=== PATIENT | female | born 1960 | race Caucasian/White ===

== ENCOUNTER 2016-12-10 11:05 | Emergency (ER) | payer OTHER, SELFPAY ==
[2016-12-10] MEDS ORDERED: Hydromorphone 1 mg/ml Ampule IV ONE (11:19)
[2016-12-10] MEDS ORDERED: Hydromorphone 1 mg/ml Ampule ONE (11:22)
--- NOTE | 2016-12-10 11:24 | ERPHSYRPT ---
- History of Present Illness Time Seen by Provider: 12/10/16 11:16 Source: patient Patient Subjective Stated Complaint: patient was vaccuming house at home tripped on cord and fell injured shoulder is concerned she dislocated it. Triage Nursing Assessment: pt gait is stead when ambulating to waiting room, patient alert and orientedx3, pupils perrla2, no cuts or lacerations noted skin clean dry and intact. sensation present pulses equal bialteral radius, cap refil immediate. Physician History: CC: left shoulder pain Hx; 56 y/o smoker with no local doctor and no meds or allergies was vaccuming her home and fell forward tripping. Landed to hurt the left shoulder. Pain is severe with movement, sharp. No neck or back pain. No N/T/W. No head injury. Denies other injuries. Has not eaten today. Occurred: just prior to arrival Extremities Pain Location: shoulder: left Allergies/Adverse Reactions: No Known Drug Allergies Allergy (Unverified 09/22/15 14:56) Home Medications: No Home Meds 1 ea UD 09/22/15 [History] Hx Tetanus, Diphtheria Vaccination/Date Given: No Hx Influenza Vaccination/Date Given: No Hx Pneumococcal Vaccination/Date Given: No - Review of Systems Constitutional: No Symptoms Respiratory: No Dyspnea Cardiac: No Chest Pain Abdominal/Gastrointestinal: No Nausea, No Vomiting Musculoskeletal: Joint Pain (left shoulder), No Back Pain, No Neck Pain Neurological: No Focal Weakness, No Headache, No Parasthesia All Other Systems: Reviewed and Negative - Past Medical History Pertinent Past Medical History: No - Past Surgical History Past Surgical History: Yes Other Surgical History: LUMP REMOVED FROM NECK - Social History Smoking Status: Current every day smoker How long have you smoked: YRS Exposure to second hand smoke: Yes Drug Use: none Patient Lives Alone: No - Nursing Vital Signs Nursing Vital Signs: Initial Vital Signs Temperature 97.5 F Temperature Source Oral Pulse Rate 70 Respiratory Rate 16 Pain Intensity 7 - Physical Exam General Appearance: alert Eyes, Ears, Nose, Throat Exam: normal ENT inspection, moist mucous membranes Neck Exam: normal inspection, non-tender, supple, No tenderness midline Cardiovascular/Respiratory Exam: chest non-tender, normal breath sounds, regular rate/rhythm Abdominal Exam: non-tender, soft Back Exam: normal inspection, No vertebral tenderness Shoulder Exam: normal inspection, bone tenderness, limited ROM (left) Elbow/Forearm Exam: normal inspection, non-tender Wrist Exam: normal inspection, non-tender Hand Exam: normal inspection, non-tender Neuro/Tendon Exam: normal sensation, normal motor functions Mental Status Exam: alert, oriented x 3, cooperative Skin Exam: normal color, warm, dry, No rash SpO2 Interpretation: normal SpO2: 97 Oxygen Delivery: Room Air - Course Nursing assessment & vital signs reviewed: Yes - Radiology Exams left shoulder/humerus X-ray Interpretation: Discussed w/ radiologist (osteopenia, humeral head impacted comminuted fracture) Ordered Tests: Active Orders 24 hr Category Date Time Status Cold Application STAT Care 12/10/16 11:19 Active IV Insertion STAT Care 12/10/16 11:17 Active NPO (ED) STAT Care 12/10/16 11:17 Active Sling Application STAT Care 12/10/16 11:19 Active HUMERUS Stat Exams 12/10/16 11:20 Completed SHOULDER Stat Exams 12/10/16 11:20 Completed Medication Summary Discontinued Medications Generic Name Dose Route Start Last Admin Trade Name Shirazq PRN Reason Stop Dose Admin Hydromorphone HCl 1 mg 12/10/16 11:19 12/10/16 11:25 Hydromorphone 1 Mg/Ml Ampule IV 12/10/16 11:20 1 mg STAT ONE Administration Hydromorphone HCl Confirm 12/10/16 11:22 Hydromorphone 1 Mg/Ml Ampule Administered 12/10/16 11:23 Dose 1 mg .ROUTE .STK-MED ONE - Progress Progress Note: 12/10/16 12:02 Pt has no preference for ortho. No local family doctor. Appt set up for Dr Edna Randall office tomorrow 1PM. Counseled pt/family regarding: diagnosis, need for follow-up, rad results, smoking cessation - Departure Time of Disposition: 12:02 Departure Disposition: Home Clinical Impression: Fracture of humeral head, left, closed Qualifiers: Encounter type: initial encounter Qualified Code(s): S42.292A - Other displaced fracture of upper end of left humerus, initial encounter for closed fracture Condition: Stable Critical Care Time: No Referrals: DOCTOR,NO FAMILY [Primary Care Provider] - PAULINO BISHOP [ACTIVE STAFF] - Instructions: Prevent Falls, Shoulder Fracture, Use a Sling Additional Instructions: See Dr Bishop at [facility] tomorrow at 1PM. Arm sling. Ice packs. Rx norco. No driving today or while taking norco. Prescriptions: Hydrocodone Bit/Acetaminophen [[place] 5-325 Tablet] 1 each PO Q6H PRN PRN #20 tablet PRN Reason: Pain
--- NOTE | 2016-12-10 11:53 | XRAY ---
Indication: Pain following fall. Comparison: None 2 views of the left humerus demonstrates osteopenia and humeral head impacted comminuted fracture. No other bony, articular, or soft tissue abnormalities.
--- NOTE | 2016-12-10 11:58 | XRAY ---
Indication: Pain following fall. Comparison: None 3 views of the left shoulder demonstrates osteopenia and humeral head impacted comminuted fracture. No other bony, articular, or soft tissue abnormalities.
[2016-12-10 12:16] VITALS: BP 125/76; PULSE 82; O2SAT 98
== END 2016-12-10 12:17 | disposition home or self-care (01) ==
LOC: ED 11:05
DX: S42.292A Other displaced fracture of upper end of left humerus, initial encounter for closed fracture (principal); M25.512 Pain in left shoulder; W01.0XXA Fall on same level from slipping, tripping and stumbling without subsequent striking against object, initial encounter; Y93.E3 Activity, vacuuming; Y92.018 Other place in single-family (private) house as the place of occurrence of the external cause
CPT/HCPCS: 36000; 73030; 73060; 96374; 99284; J1170

== ENCOUNTER 2017-07-13 22:02 | Emergency (ER) | payer OTHER ==
[2017-07-13] MEDS ORDERED: TORAdol 30 mg Injection IM ONE (22:12)
--- NOTE | 2017-07-13 22:15 | ERPHSYRPT ---
- History of Present Illness Time Seen by Provider: 07/13/17 22:10 Source: patient Exam Limitations: no limitations Physician History: 57 y/o female comes to the ER with complaints of mid back pain for the past week. Pt describes the pain as sharp, constant, 10/10 and not relieved by OTC pain medication. Pt admits to lifting heavy objects a lot. Timing/Duration: day(s) Method of Injury: bending Quality: sharp Back Pain Location: paraspinous muscles Severity of Pain-Max: severe Severity of Pain-Current: severe Modifying Factors: Improves With: nothing Associated Symptoms: denies symptoms Previous symptoms: no prior history Allergies/Adverse Reactions: No Known Drug Allergies Allergy (Unverified 09/22/15 14:56) Home Medications: No Home Meds [No Home Meds] 1 ea UD 09/22/15 [History] Hx Tetanus, Diphtheria Vaccination/Date Given: No Hx Influenza Vaccination/Date Given: No Hx Pneumococcal Vaccination/Date Given: No - Review of Systems Constitutional: No Fever, No Chills Eyes: No Symptoms Ears, Nose, & Throat: No Symptoms Respiratory: No Cough, No Dyspnea Cardiac: No Chest Pain, No Edema, No Syncope Abdominal/Gastrointestinal: No Abdominal Pain, No Nausea, No Vomiting, No Diarrhea Genitourinary Symptoms: No Dysuria Musculoskeletal: Back Pain, No Neck Pain Skin: No Rash Neurological: No Dizziness, No Focal Weakness, No Sensory Changes Psychological: No Symptoms Endocrine: No Symptoms All Other Systems: Reviewed and Negative - Past Medical History Pertinent Past Medical History: No - Past Surgical History Past Surgical History: Yes Other Surgical History: LUMP REMOVED FROM NECK - Social History Smoking Status: Current every day smoker How long have you smoked: YRS Exposure to second hand smoke: Yes Drug Use: none Patient Lives Alone: No - Nursing Vital Signs Nursing Vital Signs: Initial Vital Signs Temperature 98.9 F 07/13/17 22:09 Pulse Rate 96 H 07/13/17 22:09 Respiratory Rate 20 07/13/17 22:09 Blood Pressure 162/84 07/13/17 22:09 O2 Sat by Pulse Oximetry 99 07/13/17 22:09 Pain Scale Pain Intensity [Posterior Back 6 ] Pain Intensity 6 - Physical Exam General Appearance: no apparent distress, alert Eye Exam: PERRL/EOMI, eyes nml inspection Neck Exam: normal inspection, non-tender, supple, full range of motion, No meningismus, No midline tenderness Respiratory Exam: normal breath sounds, lungs clear, No respiratory distress Cardiovascular Exam: regular rate/rhythm, normal heart sounds Gastrointestinal Exam: soft, No tenderness, No mass Back Exam: normal inspection, normal range of motion, point tenderness, other ( paraspinal tenderness), No CVA tenderness Extremity Exam: normal inspection, normal range of motion, No calf tenderness, No pedal edema Neurologic Exam: alert, oriented x 3, cooperative, chemical operator II-XII nml as tested, normal mood/affect, nml station & gait, sensation nml, No motor deficits Skin Exam: normal color, warm, dry, No rash - Course Nursing assessment & vital signs reviewed: Yes Ordered Tests: Medication Summary Discontinued Medications Generic Name Dose Route Start Last Admin Trade Name Freq PRN Reason Stop Dose Admin Ketorolac Tromethamine 60 mg 07/13/17 22:12 07/13/17 22:19 Toradol 30 Mg Injection IM 07/13/17 22:13 60 mg STAT ONE Administration Ketorolac Tromethamine Confirm 07/13/17 22:18 Toradol 30 Mg Injection Administered 07/13/17 22:19 Dose 60 mg .ROUTE .STK-MED ONE - Progress Progress: improved Progress Note: 07/13/17 23:02 Pt feels better after receiving toradol 60mg IM X 1 dose. Pt will be d/c home with a script for toradol for back strain. - Departure Time of Disposition: 23:03 Departure Disposition: Home Clinical Impression: Back strain Qualifiers: Encounter type: initial encounter Qualified Code(s): S39.012A - Strain of muscle, fascia and tendon of lower back, initial encounter Condition: Stable Critical Care Time: No Referrals: DOCTOR,NO FAMILY [Primary Care Provider] - Instructions: Upper Back Pain Additional Instructions: Follow up with your primary care doctor if you should continue to have pain. Prescriptions: Ketorolac Tromethamine [Toradol] 10 mg PO QID PRN #20 tablet PRN Reason: Pain
[2017-07-13] MEDS ORDERED: TORAdol 30 mg Injection ONE (22:18)
[2017-07-13 23:14] VITALS: BP 138/70; PULSE 88; O2SAT 98
== END 2017-07-13 23:14 | disposition home or self-care (01) ==
LOC: ED 22:02
DX: S39.012A Strain of muscle, fascia and tendon of lower back, initial encounter (principal); X50.0XXA Overexertion from strenuous movement or load, initial encounter
CPT/HCPCS: 99283; 99284; J1885

== ENCOUNTER 2018-01-05 00:26 | Emergency (ER) | payer OTHER ==
[2018-01-05] MEDS ORDERED: TETRACAINE 0.5% STERI-UNIT SOL OP ONE (00:37)
[2018-01-05] MEDS ORDERED: Eye-Stream Solution ONE (00:37)
[2018-01-05] MEDS ORDERED: Fluor-I-Strip/Ful-Flo OP ONE (00:37)
[2018-01-05 00:41] VITALS: O2SAT 96
--- NOTE | 2018-01-05 00:52 | ERPHSYRPT ---
- History of Present Illness Time Seen by Provider: 01/05/18 00:47 Source: patient Exam Limitations: no limitations Patient Subjective Stated Complaint: PT to er co "shampoo in eye" pt states onset approx 2 hour precinct captain. Triage Nursing Assessment: right eye injury states got shampoo in eye approx 2 hour precinct captain. pt arrives with swelling and redness present to eye. pt squinting and gaurding eye. Physician History: pt got shampoo in right eye but still has persisting pain after washing it out a few hours ago; she did not know of any direct blow or hitting eye , but has linear corneal abaision on staining consistent with rubbing on towel or other object; neg seidels, ph 7.5 before and 6.5 after irrigation; globe intact and ant chamber clear - acuity 20/25 bilaterally neg fb with lid eversion; Timing/Duration: today Location: right eye Severity: moderate Apparent Injury: yes Associated Symptoms: pain, sensitivity to light, eyelid swelling Visual Assistive Devices: Glasses Chemical Exposure: Yes (shampoo only ) Trauma: Yes Welding Arc/Tanning Bed Exposure: No Allergies/Adverse Reactions: No Known Drug Allergies Allergy (Unverified 09/22/15 14:56) Home Medications: No Home Meds [No Home Meds] 1 ea UD 09/22/15 [History] Hx Tetanus, Diphtheria Vaccination/Date Given: No Hx Influenza Vaccination/Date Given: No Hx Pneumococcal Vaccination/Date Given: No - Review of Systems Constitutional: No Fever, No Chills Eyes: Eye Pain, Tearing, Other (abrasion) Ears, Nose, & Throat: No Symptoms Respiratory: No Cough, No Dyspnea Cardiac: No Chest Pain, No Edema, No Syncope Abdominal/Gastrointestinal: No Abdominal Pain, No Nausea, No Vomiting, No Diarrhea Genitourinary Symptoms: No Dysuria Musculoskeletal: No Back Pain, No Neck Pain Skin: No Rash Neurological: No Dizziness, No Focal Weakness, No Sensory Changes Psychological: No Symptoms Endocrine: No Symptoms All Other Systems: Reviewed and Negative - Past Medical History Pertinent Past Medical History: No - Past Surgical History Past Surgical History: Yes Other Surgical History: LUMP REMOVED FROM NECK - Social History Smoking Status: Current every day smoker How long have you smoked: YRS Exposure to second hand smoke: Yes Drug Use: none Patient Lives Alone: No - Nursing Vital Signs Nursing Vital Signs: Initial Vital Signs Temperature 98.1 F 01/05/18 00:30 Pulse Rate 95 H 01/05/18 00:30 Respiratory Rate 18 01/05/18 00:30 Blood Pressure 227/112 01/05/18 00:30 O2 Sat by Pulse Oximetry 96 01/05/18 00:30 Pain Scale Pain Intensity 7 - Physical Exam General Appearance: no apparent distress Vision Acuity Right Eye: 20/25 Vision Acuity Left Eye: 20/25 Eye Exam: right eye: corneal abrasion, erythema, eyelid inflammation, left eye: normal inspection, bilateral eye: PERRL, EOMI Ears, Nose, Throat Exam: normal ENT inspection Neck Exam: normal inspection, non-tender, supple, full range of motion Respiratory Exam: normal breath sounds, lungs clear Cardiovascular Exam: regular rate/rhythm, normal heart sounds, normal peripheral pulses Gastrointestinal Exam: soft, No tenderness Extremity Exam: normal inspection, normal range of motion Neurologic: alert, oriented x 3, cooperative, heater helper II-XII nml as tested, normal mood/affect, nml cerebellar function, nml station & gait Skin Exam: normal color, warm, dry SpO2 Interpretation: normal SpO2: 96 Oxygen Delivery: Room Air - Course Nursing assessment & vital signs reviewed: Yes Ordered Tests: Medication Summary Discontinued Medications Generic Name Dose Route Start Last Admin Trade Name Cristiane PRN Reason Stop Dose Admin Hydrocodone Bitart/Acetaminophen 1 tab 01/05/18 00:58 [place] 10/325 Mg Tablet PO 01/05/18 00:59 STAT ONE Diphtheria/Tetanus/Acell Pertussis 0.5 ml 01/05/18 00:58 Adacel Vial IM 01/05/18 00:59 .ONCE ONE Erythromycin 3.5 gm 01/05/18 00:57 Erythromycin 3.5 Gm Ophth. OP 01/05/18 00:58 STAT ONE Eye Irrigation Solution Confirm 01/05/18 00:37 Eye-Stream Solution Administered 01/05/18 00:38 Dose 30 ml .ROUTE .STK-MED ONE Fluorescein Sodium Confirm 01/05/18 00:37 Dqqwh-I-Gmpsr/Ful-Huang Administered 01/05/18 00:38 Dose 1 mg OP .STK-MED ONE Tetracaine HCl Confirm 01/05/18 00:37 Tetracaine 0.5% Steri-Unit Naye Administered 01/05/18 00:38 Dose 4 ml OP .STK-MED ONE - Progress Progress: improved, re-examined Progress Note: 01/05/18 01:01 bp improved to 184/100 after treatment. Counseled pt/family regarding: diagnosis, need for follow-up - Departure Time of Disposition: 00:54 Departure Disposition: Home Clinical Impression: Right corneal abrasion Condition: Good Critical Care Time: No Referrals: DOCTOR,NO FAMILY [Primary Care Provider] - Instructions: Corneal Abrasion (DC) Additional Instructions: followup with eye Dr to recheck healing of abrasion and for any additional eye problems, since scaring can occur with some abrasions. return meantime if not improving or other concerns; use eye ointment 4 times a day for a week; followup with your Dr for better control further evaluation for your blood pressure;
[2018-01-05] MEDS ORDERED: Erythromycin 1 GM ONE (01:02)
[2018-01-05] MEDS ORDERED: Adacel Vial IM ONE (01:03)
[2018-01-05] MEDS ORDERED: Norco 10/325 MG Tablet ONE (01:03)
[2018-01-05] MEDS: Adacel Vial IM ONE (01:08)
[2018-01-05] MEDS: Erythromycin 3.5 GM OPHTH. OP ONE (01:09)
[2018-01-05] MEDS: Norco 10/325 MG Tablet PO ONE (01:09)
[2018-01-05 01:42] VITALS: BP 184/99; PULSE 78
== END 2018-01-05 01:38 | disposition home or self-care (01) ==
LOC: ED 00:26
DX: S05.01XA Injury of conjunctiva and corneal abrasion without foreign body, right eye, initial encounter (principal); W45.8XXA Other foreign body or object entering through skin, initial encounter
CPT/HCPCS: 90471; 90715; 99283; A9270-GY

== ENCOUNTER 2018-06-06 21:30 | Emergency (ER) | payer OTHER ==
[2018-06-06] MEDS ORDERED: Rocephin 1000 MG INJ IM STA (22:42)
--- NOTE | 2018-06-06 22:50 | ERPHSYRPT ---
- History of Present Illness Time Seen by Provider: 06/06/18 22:30 Source: patient Exam Limitations: clinical condition Patient Subjective Stated Complaint: pt states she has a scabbed area on her lt lower leg from 2-3 weeks ago and is concerned about the swelling and redness Triage Nursing Assessment: pt alert and oriented, asnwers questions approp. pt ambulatory with steady gait noted. respirations nonlabored with lungs cta. scabbing noted to lt lower leg with mild redness and warmth surrounding. pt denies pain to her leg Physician History: PATIENT SUSTAINED ABRASIONS TO HER LEFT MID WEATHERS 3 WEEKS AGO, NOW ABRASIONS ARE SCABED OVER WITH SURROUNDING REDNESS. DENIES FEVER OR CHILLS, OR PAIN UPON WEIGHT BEARING. Method of Injury: incised Occurred: other (WEEKS AGO) Quality: other (DENIES PAIN) Severity of Pain-Max: none Severity of Pain-Current: none Modifying Factors: Improves With: nothing Associated Symptoms: other (ABRASIONS WITH REDNESS) Allergies/Adverse Reactions: No Known Drug Allergies Allergy (Verified 06/06/18 22:35) Home Medications: No Home Meds [No Home Meds] 1 [facility] 09/22/15 [History] Hx Tetanus, Diphtheria Vaccination/Date Given: No (unknown) Hx Influenza Vaccination/Date Given: No Hx Pneumococcal Vaccination/Date Given: No Immunizations Up to Date: No - Review of Systems Constitutional: No Fever, No Chills Eyes: No Symptoms Ears, Nose, & Throat: No Symptoms Respiratory: No Symptoms, No Cough, No Dyspnea Cardiac: Orthopnea, No Chest Pain, No Edema, No Syncope Abdominal/Gastrointestinal: No Abdominal Pain, No Nausea, No Vomiting, No Diarrhea Genitourinary Symptoms: No Dysuria Musculoskeletal: Injury, No Back Pain, No Neck Pain Skin: No Rash Neurological: No Dizziness, No Focal Weakness, No Sensory Changes Psychological: No Symptoms Endocrine: No Symptoms All Other Systems: Reviewed and Negative - Past Medical History Pertinent Past Medical History: No - Past Surgical History Past Surgical History: Yes Musculoskeletal: Orthopedic Surgery Other Surgical History: LUMP REMOVED FROM NECK, lt shoulder repair - Social History Smoking Status: Current every day smoker How long have you smoked: YRS Exposure to second hand smoke: Yes Drug Use: none Patient Lives Alone: No - Nursing Vital Signs Nursing Vital Signs: Initial Vital Signs Temperature 97.9 F 06/06/18 22:26 Pulse Rate 79 06/06/18 22:26 Respiratory Rate 18 06/06/18 22:26 Blood Pressure 184/109 06/06/18 22:26 O2 Sat by Pulse Oximetry 98 06/06/18 22:26 Pain Scale Pain Intensity 0 - Physical Exam General Appearance: no apparent distress Eyes, Ears, Nose, Throat Exam: normal ENT inspection Neck Exam: normal inspection Cardiovascular/Respiratory Exam: chest non-tender Gastrointestinal/Abdominal Exam: non-tender Legs Exam: right leg: swelling (HEALING ABRASIONS 1.5CM X 1CM X 2 LESIONS WITH SURROUNDING ERYTHRMA, WARMTN, MID LEFT WEATHERS, PEDIS PULSE 2+) Neuro/Tendon Exam: normal sensation Mental Status Exam: alert, oriented x 3 Skin Exam: normal color SpO2 Interpretation: normal SpO2: 98 Oxygen Delivery: Room Air Ordered Tests: Active Orders 24 hr Category Date Time Status IV Insertion STAT Care 06/06/18 22:42 Active Medication Summary Generic Name Dose Route Start Last Admin Trade Name Freq PRN Reason Stop Dose Admin Ceftriaxone Sodium mg 06/06/18 22:42 Rocephin 1000 Mg Inj IM 06/06/18 22:43 STAT STA Discontinued Medications Generic Name Dose Route Start Last Admin Trade Name Freq PRN Reason Stop Dose Admin Ceftriaxone Sodium/Dextrose 1 g in 50 mls @ 100 mls/hr 06/06/18 23:22 23:33 Rocephin 1 Gm-D5w 50 Ml Bag IV 06/06/18 23:51 100 ml/hr STAT STA 100 mls/hr Administration Ceftriaxone Sodium/Dextrose Confirm 06/06/18 23:23 Rocephin 1 Gm-D5w 50 Ml Bag Administered 06/06/18 23:24 Dose 1 g in 50 mls @ ud IV .STK-MED ONE - Progress Progress Note: 06/06/18 22:52 SALINE LOCK, ROCEPHIN 1GM IVPB Counseled pt/family regarding: diagnosis, need for follow-up - Departure Time of Disposition: 23:56 Departure Disposition: Home Clinical Impression: ABRASIONS/CELLULITIS LEFT WEATHERS Condition: Stable Critical Care Time: No Referrals: DOCTOR,NO FAMILY [Primary Care Provider] - Additional Instructions: BEGIN ANTIBIOTIC AUGMENTIN 875MG TWICE DAILY FOR 10 DAYS. WATCH FOR INCREASING SIGNS OF INFECTION, REDNESS, SWELLING OR DRAINAGE. TYLENOL OR MOTRIN NEEDED FOR PAIN OR FEVER. Prescriptions: Amox Tr/Potass Clav. 875 mg [Augmentin 875-125 Tablet] 1 tab PO BID #20 tablet
[2018-06-06] MEDS ORDERED: ROCEPHIN 1 Gm-D5w 50 ml Bag** 1 G/50 ML IVPB IV STA (23:22)
[2018-06-06] MEDS ORDERED: ROCEPHIN 1 Gm-D5w 50 ml Bag** 1 G/50 ML IVPB IV ONE (23:23)
[2018-06-07 00:04] VITALS: BP 165/97; PULSE 81; O2SAT 97
== END 2018-06-07 00:05 | disposition home or self-care (01) ==
LOC: ED 21:30
DX: L03.116 Cellulitis of left lower limb (principal)
CPT/HCPCS: 36000; 96365; 99284; J0696

== ENCOUNTER 2019-12-30 08:58 | Emergency (ER) | payer OTHER ==
[2019-12-30] MEDS ORDERED: Sodium Chloride 0.9% 1000 ML 1,000 ML ONE (09:22)
[2019-12-30] MEDS ORDERED: MORPHINE SULFATE 2 MG INJ IV ONE (09:25)
[2019-12-30] MEDS ORDERED: MORPHINE SULFATE 2 MG INJ ONE (09:27)
[2019-12-30 09:28] LABS: Absolute Neutrophil Ct (ANC) 3.94 (1.4-6.9); BASOPHIL % 0.6 % (0.0-0.4); Basophil (Absolute #) 0.04 (0-0.4); Eosinophil % 3.3 % (0.00-5.0); Eosinophil (Absolute #) 0.21 (0-0.5); Hematocrit 40.6 % (35-47); Lymphocyte (Absolute #) 1.81 (1.0-4.6); Lymphocytes % 28.4 % (24.0-44.0); Mean Cell Volume 89.6 fl (78-100); Mean Corpuscular Hemoglobin 28.7 pg (26-32); Monocyte (Absolute #) 0.38 (0.0-1.3); Neutrophil % 61.7 % (36.0-66.0); Platelet Count 270 K/mm3 (150-450); Red Blood Count 4.53 M/mm3 (4.1-5.4); White Blood Count 6.4 K/mm3 (4.0-10.5)
[2019-12-30] MEDS ORDERED: Sodium Chloride 0.9% 1000 ML 1,000 ML IV SCH (09:30)
--- NOTE | 2019-12-30 09:30 | ERPHSYRPT ---
- History of Present Illness Time Seen by Provider: 12/30/19 09:15 Historian: patient Exam Limitations: no limitations Patient Subjective Stated Complaint: pt here for left sided abd pain that radiates to flank area with nausea and vomting this am. Triage Nursing Assessment: pt alert, walked in with face mask on, resp easy, skin w/d/p. abd soft, moves all ext well Physician History: Patient is a 59-year-old female presents to our ED with complaints of left lower quadrant pain. Patient states the pain started last night but was very mild. Patient worsened this morning. Pain described as an ache that is well loca lized. Pain occasionally shoots into her left flank. No associated diarrhea. Patient admits to 1 episode of nausea and vomiting this morning just prior to arrival. No associated trauma. No fever. No change in appetite or urine output. Patient does not receive routine care and states she has no other medical problems. Patient voices no other complaints at this time. Timing/Duration: yesterday Activities at Onset: none Quality: aching Abdominal Pain Onset Location: LLQ Pain Radiation: flank Severity of Pain-Max: moderate Severity of Pain-Current: mild Modifying Factors: Improves With: nothing Associated Symptoms: nausea, vomiting, No diarrhea, No weakness Previous symptoms: no prior history Allergies/Adverse Reactions: No Known Drug Allergies Allergy (Verified 12/30/19 09:15) Home Medications: No Home Meds [No Home Meds] 1 [facility] UD 09/22/15 [History] Hx Tetanus, Diphtheria Vaccination/Date Given: No (unknown) Hx Influenza Vaccination/Date Given: No Hx Pneumococcal Vaccination/Date Given: No Immunizations Up to Date: Yes Travel Risk - International Travel Have you traveled outside of the country in past 3 weeks: No - Coronavirus Screening Are you exhibiting any of the following symptoms?: Yes Symptoms: Vomiting/Diarrhea Close contact with a COVID-19 positive Pt in past 14-21 Days: No - Review of Systems Constitutional: No Symptoms, No Fever, No Chills Eyes: No Symptoms Ears, Nose, & Throat: No Symptoms Respiratory: No Symptoms, No Cough, No Dyspnea Cardiac: No Symptoms, No Chest Pain, No Edema, No Syncope Abdominal/Gastrointestinal: No Symptoms, No Abdominal Pain, No Nausea, No Vomiting, No Diarrhea Genitourinary Symptoms: No Symptoms, No Dysuria Musculoskeletal: No Symptoms, No Back Pain, No Neck Pain Skin: No Symptoms, No Rash Neurological: No Symptoms, No Dizziness, No Focal Weakness, No Sensory Changes Psychological: No Symptoms Endocrine: No Symptoms Hematologic/Lymphatic: No Symptoms Immunological/Allergic: No Symptoms All Other Systems: Reviewed and Negative - Past Medical History Pertinent Past Medical History: No - Past Surgical History Past Surgical History: Yes Musculoskeletal: Orthopedic Surgery Other Surgical History: LUMP REMOVED FROM NECK, lt shoulder repair - Social History Smoking Status: Current every day smoker How long have you smoked: YRS Exposure to second hand smoke: Yes Drug Use: none Patient Lives Alone: Yes - Female History Hx Last Menstrual Period: post Hx Now: No - Nursing Vital Signs Nursing Vital Signs: Initial Vital Signs Temperature 97.5 F 12/30/19 09:09 Pulse Rate 80 12/30/19 09:09 Respiratory Rate 16 12/30/19 09:09 Blood Pressure 164/103 12/30/19 09:09 O2 Sat by Pulse Oximetry 96 12/30/19 09:09 Pain Scale Pain Intensity 3 - Physical Exam General Appearance: no apparent distress, alert Eye Exam: PERRL/EOMI, eyes nml inspection Ears, Nose, Throat Exam: normal ENT inspection, pharynx normal, moist mucous membranes Neck Exam: normal inspection, non-tender, supple, full range of motion Respiratory Exam: normal breath sounds, lungs clear, No respiratory distress Cardiovascular Exam: regular rate/rhythm, normal heart sounds Gastrointestinal/Abdomen Exam: soft, No tenderness, No mass Pelvic Exam: not done Back Exam: normal inspection, normal range of motion, No CVA tenderness, No vertebral tenderness Extremity Exam: normal inspection, normal range of motion, pelvis stable Neurologic Exam: alert, oriented x 3, cooperative, normal mood/affect, nml cerebellar function, sensation nml, No motor deficits Skin Exam: normal color, warm, dry Lymphatic Exam: No adenopathy SpO2 Interpretation: normal SpO2: 96 O2 Delivery: Room Air - Course Nursing assessment & vital signs reviewed: Yes EKG Interpreted by Me: RATE (63), Sinus Rhythm, NORMAL AXIS, NORMAL INTERVALS - CT Exams Abdomen/Pelvis CT Interpretation: Tele-radiologist Report (9 x 10 x 8 cm midline cystic mass probably ovarian in etiology. Degenerative changes of thoracolumbar spine. Remote appearing T8 T11 compression deformities with 25 to 50% height loss. ) Ordered Tests: Active Orders 24 hr Category Date Time Status EKG-ER Only STAT Care 12/30/19 09:16 Active IV Insertion STAT Care 12/30/19 09:16 Active ABDOMEN AND PELVIS W CONTRAST [CT] Stat Exams 12/30/19 09:24 Completed CBC W DIFF Stat Lab 12/30/19 09:15 Completed CMP Stat Lab 12/30/19 09:15 Completed LIPASE Stat Lab 12/30/19 09:15 Completed TROPONIN Q3H Lab 12/30/19 09:15 Completed TROPONIN Q3H Lab 12/30/19 12:30 Ordered TROPONIN Q3H Lab 12/30/19 15:30 Ordered TROPONIN Q3H Lab 12/30/19 18:30 Ordered TROPONIN Q3H Lab 12/30/19 21:30 Ordered UA W/RFX UR CULTURE Stat Lab 12/30/19 10:15 Completed Medication Summary Generic Name Dose Route Start Last Admin Trade Name Freq PRN Reason Stop Dose Admin Sodium Chloride 1,000 mls @ 100 mls/hr 12/30/19 09:30 12/30/19 09:26 Sodium Chloride 0.9% 1000 Ml IV 01/29/20 09:29 100 mls/hr .Q10H SAMANTHA Administration Discontinued Medications Generic Name Dose Route Start Last Admin Trade Name Freq PRN Reason Stop Dose Admin Morphine Sulfate 2 mg 12/30/19 09:25 12/30/19 09:29 Morphine Sulfate 2 Mg Inj IV 12/30/19 09:26 2 mg STAT ONE Administration Morphine Sulfate Confirm 12/30/19 09:27 Morphine Sulfate 2 Mg Inj Administered 12/30/19 09:28 Dose 2 mg .ROUTE .[facility] ONE Lab/Rad Data: Laboratory Result Diagrams 12/30/19 09:15 12/30/19 09:15 Laboratory Results 12/30/19 12/30/19 12/30/19 Range/Units 10:15 09:15 09:15 WBC (4.0-10.5) K/mm3 RBC (4.1-5.4) M/mm3 Hgb (12.0-16.0) gm/dl Hct (35-47) % MCV (78-100) fl MCH (26-32) pg MCHC (32-36) g/dl RDW (11.5-14.0) % Plt Count (150-450) K/mm3 MPV (7.5-11.0) fl Gran % (36.0-66.0) % Eos # (Auto) (0-0.5) Absolute Lymphs (auto) (1.0-4.6) Absolute Monos (auto) (0.0-1.3) Lymphocytes % (24.0-44.0) % Monocytes % (0.0-12.0) % Eosinophils % (0.00-5.0) % Basophils % (0.0-0.4) % Absolute Granulocytes (1.4-6.9) Basophils # (0-0.4) Sodium 139 (137-145) mmol/L Potassium 3.7 (3.5-5.1) mmol/L Chloride 106 (98-107) mmol/L Carbon Dioxide 26 (22-30) mmol/L Anion Gap 10.5 (5-15) MEQ/L BUN 7 (7-17) mg/dL Creatinine 0.51 L (0.52-1.04) mg/dL Estimated GFR > 60.0 ML/MIN Glucose 147 H (74-106) mg/dL Calcium 9.0 (8.4-10.2) mg/dL Total Bilirubin 0.50 (0.2-1.3) mg/dL AST 34 (14-36) U/L ALT 26 (0-35) U/L Alkaline Phosphatase 282 H (38-126) U/L Troponin I < 0.012 (0.000-0.034) ng/mL Serum Total Protein 7.6 (6.3-8.2) g/dL Albumin 4.1 (3.5-5.0) g/dL Lipase 68 (23-300) U/L Urine Color STRAW (YELLOW) Urine Appearance CLEAR (CLEAR) Urine pH 7.0 (5-6) Ur Specific [place] 1.005 (1.005-1.025) Urine Protein NEGATIVE (Negative) Urine Ketones NEGATIVE (NEGATIVE) Urine Blood SMALL (0-5) Ovidio/ul Urine Nitrite NEGATIVE (NEGATIVE) Urine Bilirubin NEGATIVE (NEGATIVE) Urine Urobilinogen NEGATIVE (0-1) mg/dL Ur Leukocyte Esterase NEGATIVE (NEGATIVE) Urine WBC (Auto) NONE (0-5) /HPF Urine RBC (Auto) NONE SEEN (0-2) /HPF U Epithel Cells (Auto) NONE (FEW) /HPF Urine Bacteria (Auto) NONE SEEN (NEGATIVE) /HPF Urine Mucus (Auto) SLIGHT (NEGATIVE) /HPF Urine Culture Reflexed NO (NO) Urine Glucose NEGATIVE (NEGATIVE) mg/dL 12/30/19 Range/Units 09:15 WBC 6.4 (4.0-10.5) K/mm3 RBC 4.53 (4.1-5.4) M/mm3 Hgb 13.0 (12.0-16.0) gm/dl Hct 40.6 (35-47) % MCV 89.6 (78-100) fl MCH 28.7 (26-32) pg MCHC 32.0 (32-36) g/dl RDW 15.0 H (11.5-14.0) % Plt Count 270 (150-450) K/mm3 MPV 11.0 (7.5-11.0) fl Gran % 61.7 (36.0-66.0) % Eos # (Auto) 0.21 (0-0.5) Absolute Lymphs (auto) 1.81 (1.0-4.6) Absolute Monos (auto) 0.38 (0.0-1.3) Lymphocytes % 28.4 (24.0-44.0) % Monocytes % 6.0 (0.0-12.0) % Eosinophils % 3.3 (0.00-5.0) % Basophils % 0.6 (0.0-0.4) % Absolute Granulocytes 3.94 (1.4-6.9) Basophils # 0.04 (0-0.4) Sodium (137-145) mmol/L Potassium (3.5-5.1) mmol/L Chloride (98-107) mmol/L Carbon Dioxide (22-30) mmol/L Anion Gap (5-15) MEQ/L BUN (7-17) mg/dL Creatinine (0.52-1.04) mg/dL Estimated GFR ML/MIN Glucose (74-106) mg/dL Calcium (8.4-10.2) mg/dL Total Bilirubin (0.2-1.3) mg/dL AST (14-36) U/L ALT (0-35) U/L Alkaline Phosphatase (38-126) U/L Troponin I (0.000-0.034) ng/mL Serum Total Protein (6.3-8.2) g/dL Albumin (3.5-5.0) g/dL Lipase (23-300) U/L Urine Color (YELLOW) Urine Appearance (CLEAR) Urine pH (5-6) Ur Specific [place] (1.005-1.025) Urine Protein (Negative) Urine Ketones (NEGATIVE) Urine Blood (0-5) Ovidio/ul Urine Nitrite (NEGATIVE) Urine Bilirubin (NEGATIVE) Urine Urobilinogen (0-1) mg/dL Ur Leukocyte Esterase (NEGATIVE) Urine WBC (Auto) (0-5) /HPF Urine RBC (Auto) (0-2) /HPF U Epithel Cells (Auto) (FEW) /HPF Urine Bacteria (Auto) (NEGATIVE) /HPF Urine Mucus (Auto) (NEGATIVE) /HPF Urine Culture Reflexed (NO) Urine Glucose (NEGATIVE) mg/dL - Progress Progress: improved Progress Note: 12/30/19 11:17 Patient reassessed. Pain improved. CT abdomen pelvis shows large pelvic cystic mass measuring 9.6 x 10.1 x 8.5 cm. Malignancy such as cyst adenocarcinoma must be ruled out. Borderline cardiomegaly with scattered arterial sclerotic disease and chronic bony findings. Case discussed with of CASTING DIRECTOR. Ca1 25 and CEA were both ordered. These are send outs. Patient will be discharged home and she will follow-up with our CASTING DIRECTOR physician on Saturday. He presented to our ED and evaluated patient at bedside. Pain well controlled at this time. Patient had not taken any oral pain medications/analgesics at home. Patient will try Tylenol Motrin for pain control. Plan of care discussed with patient. She agrees to follow-up with Dr. Llamas on Saturday as planned. All questions were answered. Patient voices no other complaints or concerns at this time. 12/30/19 11:47 Discussed with : Kang Will see patient in: office Counseled pt/family regarding: lab results, diagnosis, need for follow-up, rad results - Departure Departure Disposition: Home Clinical Impression: Abdominal pain, Hyperglycemia Condition: Stable Critical Care Time: No Referrals: DOCTOR,NO FAMILY [Primary Care Provider] - KAHLIL CAMPOS DO [ACTIVE STAFF] - Additional Instructions: Discharge/Care Plan RUTHYANILA PONCE was seen on 12/30/19 in the Emergency Room. The patient was counseled regarding Diagnosis,Lab results, Imaging studies, need for follow up and when to return to the Emergency Room. Prescriptions given: Discharge Note I have spoken with the patient and/or caregivers. I have explained the patient's condition, diagnosis and treatment plan based on the information available to me at this time. I have answered the patient's and/or caregiver's questions and addressed any concerns. The patient and/or caregivers have as good understanding of the patient's diagnosis, condition and treatment plan as can be expected at this point. The vital signs have been stable. The patient's condition is stable and appropriate for discharge from the emergency department. The patient will pursue further outpatient evaluation with the primary care physician or other designated or consulting physician as outlined in the discharge instructions. The patient and/or caregivers are agreeable to this plan of care and follow-up instructions have been explained in detail. The patient and/or caregivers have received these instruction. The patient/and or caregivers are aware that any significant change in condition or worsening of symptoms should prompt an immediate return to this or the closest emergency department or call 911.
[2019-12-30 09:46] LABS: ALBUMIN 4.1 g/dL (3.5-5.0); ALKALINE PHOSPHATASE 282 U/L (38-126); ANION GAP 10.5 MEQ/L (5-15); BLOOD UREA NITROGEN 7 mg/dL (7-17); CHLORIDE 106 mmol/L (98-107); Carbon Dioxide 26 mmol/L (22-30); Creatinine 1 0.51 mg/dL (0.52-1.04); Glucose 147 mg/dL (74-106); LIPASE 68 U/L (23-300); Potassium 3.7 mmol/L (3.5-5.1); SGOT/AST 34 U/L (14-36); SGPT/ALT 26 U/L (0-35); SODIUM 139 mmol/L (137-145); Total Protein 7.6 g/dL (6.3-8.2)
--- NOTE | 2019-12-30 11:02 | XRAY ---
Indication: Left lower quadrant pain. Multiple contiguous axial images obtained through the abdomen and pelvis using 80 cc Isovue 370 contrast only. Comparison: None Lung bases demonstrates scattered fibrosis/scarring. No focal infiltrate or effusion. Heart is borderline enlarged. Noncontrasted stomach and bowel loops appear nonobstructed. Appendix not seen. Pelvis demonstrates a 9.6 x 10.1 x 8.5 cm midline cystic mass, probably ovary in etiology. No free fluid/air. Remaining liver, gallbladder, pancreas, spleen, adrenal glands, kidneys, ureters, bladder, and uterus unremarkable. Mild scattered aortoiliac calcifications. No AAA or pathologic retroperitoneal lymphadenopathy. Osseous structures intact with minimal degenerative changes throughout the thoracolumbar spine. Remote appearing T8/T11 compression deformities with 25-50% height loss. Impression: 1. Large pelvic cystic mass with measurements above possibly ovary etiology. Rule out malignancy such as cystadenocarcinoma. 2. Borderline cardiomegaly, scattered arteriosclerotic disease, and chronic bony findings. 3. Remaining CT abdomen/pelvis with contrast exam is negative.
[2019-12-30 11:17] VITALS: BP 174/94; PULSE 66
[2019-12-30 11:19] VITALS: O2SAT 96
[2019-12-30 11:27] LABS: Appearance CLEAR (CLEAR); Bilirubin NEGATIVE (NEGATIVE); Blood SMALL Ery/ul (0-5); Glucose NEGATIVE (NEGATIVE); Ketones NEGATIVE (NEGATIVE); Leukocyte Esterase NEGATIVE (NEGATIVE); Mucus SLIGHT /HPF (NEGATIVE); Nitrite NEGATIVE (NEGATIVE); Protein,Urine Dip NEGATIVE (Negative); Specific Gravity 1.005 (1.005-1.025); Urobilinogen NEGATIVE mg/dL (0-1)
[2019-12-30 11:36] LABS: RBC NONE SEEN /HPF (0-2)
[2019-12-30 11:37] LABS: Bacteria NONE SEEN /HPF (NEGATIVE)
== END 2019-12-30 11:49 | disposition home or self-care (01) ==
LOC: ED 08:58
DX: R10.9 Unspecified abdominal pain (principal); R73.9 Hyperglycemia, unspecified; Z72.0 Tobacco use
CPT/HCPCS: 36000; 36415; 74177; 80053; 81001; 82378; 83690; 84484; 85025; 86304; 93005; 96374; 99284; J2270

== ENCOUNTER 2020-03-09 20:20 | Emergency (ER) | payer OTHER ==
--- NOTE | 2020-03-09 20:30 | ERPHSYRPT ---
- History of Present Illness Time Seen by Provider: 03/09/20 20:30 Source: patient Exam Limitations: no limitations Physician History: This is a right-handed 59-year-old female who was walking on an uneven road and fell on outstretched hands. She complains of left wrist pain and left knee pain. There is an abrasion and laceration on her left anterior knee. Patient's last tetanus injection was in 2018 patient has no known drug allergies. Patient did not hit her neck or head during the fall. Occurred: just prior to arrival Method of Injury: fell Quality: aching, throbbing Severity of Pain-Max: moderate Severity of Pain-Current: moderate Extremities Pain Location: wrist: left, other: left (Left anterior knee) Modifying Factors: Improves With: movement Associated Symptoms: none Allergies/Adverse Reactions: No Known Drug Allergies Allergy (Verified 03/09/20 20:42) Home Medications: Lisinopril 5 mg [Zestril 5 MG] 5 mg PO DAILY 03/09/20 [History] Hx Tetanus, Diphtheria Vaccination/Date Given: No (unknown) Hx Influenza Vaccination/Date Given: No Hx Pneumococcal Vaccination/Date Given: No Travel Risk - International Travel Have you traveled outside of the country in past 3 weeks: No - Coronavirus Screening Are you exhibiting any of the following symptoms?: No Close contact with a COVID-19 positive Pt in past 14-21 Days: No - Review of Systems Constitutional: No Symptoms Eyes: No Symptoms Ears, Nose, & Throat: No Symptoms Respiratory: No Symptoms Cardiac: No Symptoms Abdominal/Gastrointestinal: No Symptoms Genitourinary Symptoms: No Symptoms Musculoskeletal: Deformity (Left wrist), Fall, Injury (Wrist and left anterior knee) Skin: No Symptoms Neurological: No Symptoms Psychological: No Symptoms Endocrine: No Symptoms Hematologic/Lymphatic: No Symptoms Immunological/Allergic: No Symptoms All Other Systems: Reviewed and Negative - Past Medical History Pertinent Past Medical History: Yes Neurological History: No Pertinent History ENT History: No Pertinent History Cardiac History: No Pertinent History Respiratory History: No Pertinent History Endocrine Medical History: No Pertinent History Musculoskeletal History: No Pertinent History GI Medical History: No Pertinent History History: No Pertinent History Psycho-Social History: No Pertinent History Female Reproductive Disorders: No Pertinent History - Past Surgical History Past Surgical History: Yes Neuro Surgical History: No Pertinent History Cardiac: No Pertinent History Respiratory: No Pertinent History Gastrointestinal: No Pertinent History Genitourinary: No Pertinent History Musculoskeletal: Orthopedic Surgery Female Surgical History: Tubal Ligation Other Surgical History: LUMP REMOVED FROM NECK, lt shoulder repair - Social History Smoking Status: Current every day smoker How long have you smoked: YRS Exposure to second hand smoke: Yes Drug Use: none Patient Lives Alone: Yes - Nursing Vital Signs Nursing Vital Signs: Initial Vital Signs Temperature 97.6 F 03/09/20 20:30 Pulse Rate 87 03/09/20 20:30 Respiratory Rate 18 03/09/20 20:30 Blood Pressure 168/86 03/09/20 20:30 O2 Sat by Pulse Oximetry 98 03/09/20 20:30 Pain Scale Pain Intensity 10 - Physical Exam General Appearance: no apparent distress, alert, anxiety Eyes, Ears, Nose, Throat Exam: normal ENT inspection, moist mucous membranes Neck Exam: normal inspection, non-tender, supple, full range of motion Cardiovascular/Respiratory Exam: chest non-tender, no respiratory distress, rhonchi Abdominal Exam: non-tender Back Exam: normal inspection, normal range of motion, No CVA tenderness, No vertebral tenderness Shoulder Exam: normal inspection, non-tender, no evidence of injury, normal ROM Elbow/Forearm Exam: normal inspection, non-tender, no evidence of injury, normal ROM Wrist Exam: bone tenderness, deformity, limited ROM, soft tissue tenderness, swelling Hand Exam: normal inspection, non-tender, no evidence of injury, normal ROM Neuro/Tendon Exam: normal sensation, normal motor functions, normal tendon functions, responds to pain, no evidence tendon injury Skin Exam: normal color, warm, dry Comments: Examination of the patient's left anterior knee shows abrasion as well up as approximately 4 cm diagonal laceration of the skin on the anterior knee. There is no foreign body and there is no active bleeding present. Procedures - Laceration/Wound Repair Left Anterior Knee Wound Location: Left, lower leg (Anterior knee) Wound Length (cm): 4 Wound's Depth, Shape: superficial, linear Wound Explored: clean (Foreign body noted. Evaluation was performed in bloodless field to the base.) Irrigated: Yes Hibiclens Prep: Yes Anesthesia: topical Wound Repaired With: Ophir (6 fariba placed to approximate the laceration site.) - Course Nursing assessment & vital signs reviewed: Yes Ordered Tests: Active Orders 24 hr Category Date Time Status KNEE (3 VIEWS) Stat Exams 03/09/20 21:12 Taken WRIST (MIN 3 VIEWS) Stat Exams 03/09/20 20:31 Taken Medication Summary Discontinued Medications Generic Name Dose Route Start Last Admin Trade Name Cristiane PRN Reason Stop Dose Admin Lidocaine/Prilocaine Confirm 03/09/20 20:35 Emla Cream 5 Gm Administered 03/09/20 20:36 Dose 5 gm TP .STK-MED ONE - Progress Progress: improved, pain not gone completely, re-examined Progress Note: 03/09/20 21:35 X-ray of the left wrist reveals a fracture of the distal radius. There does not appear to be a fracture of the distal ulna. X-ray of the left knee shows no acute fracture or dislocation. Neurovascular examination of the patient's left hand after placement of short arm Ortho-Glass on the left wrist reveals patient to be neurovascularly intact with brisk capillary refill return. Patient is able to wiggle her fingers and thumb. Counseled pt/family regarding: diagnosis, need for follow-up, rad results - Departure Departure Disposition: Home Clinical Impression: Distal radius fracture, left, Laceration of left knee, Abrasion, left knee, initial encounter Condition: Stable Critical Care Time: No Referrals: YAMILE RODRIGUEZ DO [Primary Care Provider] - Additional Instructions: Keep left knee laceration and abrasion site dry for 24 hours. After 24 hours may wash the site with soap and water and blot dry. After washing, may apply antibiotic ointment once a day and then cover the area with a nonstick gauze. Staple removal in 8 to 10 days. Take medication as prescribed. Follow-up with the [facility] orthopedic clinic tomorrow morning at 8:00. Prescriptions: Oxycodone HCl/Acetaminophen [Percocet 5-325 mg Tablet] 1 each PO Q8H PRN PRN #12 tablet MDD 3 PRN Reason: Pain Cephalexin Mh 500 mg [Keflex 500 mg] 500 mg PO TID #21 capsule
[2020-03-09] MEDS ORDERED: EMLA Cream 5 GM TP ONE ×2 (20:35→21:44)
[2020-03-09] MEDS ORDERED: OXYCODONE-ACETAMINOPHEN 10-325 PO STA (21:42)
[2020-03-09] MEDS ORDERED: PERCOCET TABLET 5/325MG PO STA (21:43)
[2020-03-09] MEDS ORDERED: KEFLEX 500 MG PO ONE (21:43)
[2020-03-09] MEDS ORDERED: BACIGUENT PACKET TP ONE (21:44)
[2020-03-09] MEDS ORDERED: BACIGUENT PACKET ONE (21:46)
[2020-03-09] MEDS ORDERED: PERCOCET TABLET 5/325MG ONE ×2 (21:46→21:57)
[2020-03-09] MEDS ORDERED: KEFLEX 500 MG ONE (21:47)
[2020-03-09] MEDS ORDERED: OXYCODONE-ACETAMINOPHEN 10-325 ONE (21:47)
[2020-03-09 22:57] VITALS: BP 171/90; PULSE 86; O2SAT 97
--- NOTE | 2020-03-10 11:16 | XRAY ---
Exam: 3 view left knee series from 03/09/2020. Comparison: None. Indication: Patient fell on road, anterior lateral left knee laceration, knee pain. Findings: AP, internal oblique, and crosstable lateral images of the left knee were obtained. I see no acute left knee fracture, dislocation, or other significant focal bone lesion. The left knee joint space is not seen in optimal profile, but I suspect some mild narrowing of the medial compartment. No significant osteophyte formation is seen. There is mild vascular calcification within the distal superficial femoral artery, popliteal artery, and proximal calf arteries. Correlate clinically regarding diabetes. Impression: 1. No acute fracture, dislocation, or suprapatellar joint effusion of the left knee is seen. 2. Neither do I see any suspicious radiopaque soft tissue foreign body. 3. Suspect mild narrowing of medial compartment joint space of left knee. 4. Mild atherosclerotic vascular calcification is seen posterior to the left knee. Correlate clinically regarding diabetes.
--- NOTE | 2020-03-10 11:24 | XRAY ---
Exam: 3 view left wrist series from 03/09/2020. Comparison: None. Indication: Patient fell; complains of left wrist pain. Findings: The radiology teacher left a note that the images were performed as the patient presented with different tube angles. AP, oblique, and crosstable lateral views of the left wrist reveal an impacted, comminuted, acute fracture of the distal left radius. A fracture line may extend into the dorsal ulnar margin of the articular surface of the distal left radius. Mild cortical displacement and slight volar tilting are seen. Surrounding soft tissue swelling is evident I also note a subtle avulsion fracture injury of the distal left ulnar styloid process. The carpal bones appear intact. The radiocarpal joint space and carpal joint spaces appear unremarkable. Impression: 1. Impacted Colles' fracture of the distal left radius and ulnar styloid process tip, as discussed above.
== END 2020-03-09 22:49 | disposition home or self-care (01) ==
LOC: ED 20:20
DX: S52.502A Unspecified fracture of the lower end of left radius, initial encounter for closed fracture (principal); W01.198A Fall on same level from slipping, tripping and stumbling with subsequent striking against other object, initial encounter; Y93.01 Activity, walking, marching and hiking; Y92.410 Unspecified street and highway as the place of occurrence of the external cause; M25.532 Pain in left wrist; M25.562 Pain in left knee; S81.012A Laceration without foreign body, left knee, initial encounter; S80.212A Abrasion, left knee, initial encounter
CPT/HCPCS: 12002; 29515; 73110; 73562; 99284; A9270-GY

== ENCOUNTER 2021-07-05 19:02 | Emergency (ER) | payer OTHER ==
[2021-07-05] MEDS ORDERED: MORPHINE SULFATE 4 MG INJ IV ONE (19:41)
[2021-07-05] MEDS ORDERED: Zofran 4 MG/2 ML VIAL IV ONE (19:41)
[2021-07-05] MEDS ORDERED: APRESOLINE 20 MG/ML INJ IV ONE (19:42)
--- NOTE | 2021-07-05 19:50 | ERPHSYRPT ---
- History of Present Illness Time Seen by Provider: 07/05/21 19:15 Source: patient Exam Limitations: no limitations Patient Subjective Stated Complaint: C/O mid to lower back pain. States pain is more on the right side of her back but does extend to left side some. Pain st arted approx 1 week ago. Denies falling. States she is unsure what she could have done to cause an injury to area. Seen in clinic a few days ago for the pain and they started her on a medrol dose pack. Started pack on 07/03/21 and she states it has been ineffective in helping pain so far. Triage Nursing Assessment: Patient ambulated back to ED with a slow, uneven gait. She is slightly bent over when walking. Patient with noted difficulties getting up into bed in ED; grimacing while getting into bed. She is alert and oriented and answering questions appropriately. No skin alerations noted to back. No swelling noted in back. Physician History: 61 years old female with history of hypertension not taking any medication for quite some time presented in the ER with 1 week history of mid to low back pain with some radiation on the right side, moderate to severe intensity, sharp in nature without any fall or trauma. Patient denies any numbness tingling weakness of lower extremities. Denies any abdominal pain. No loss of bowel or bladder control. Patient blood pressure is in 250s on presentation, denies any headache, neck pain, visual disturbance, numbness tingling or focal weakness. Timing/Duration: week(s) (1), gradual onset, worse Method of Injury: unknown Quality: sharp Back Pain Location: paraspinous muscles Severity of Pain-Max: severe Severity of Pain-Current: moderate Associated Symptoms: lower back pain, No loss of bowel control, No numbness in legs/feet, No weakness, No sensory/motor loss, No tingling in legs/feet Previous symptoms: no prior history Allergies/Adverse Reactions: No Known Drug Allergies Allergy (Verified 07/05/21 19:18) Home Medications: Methylprednisolone Packet [Medrol Dosepack] 1 tab PO DIRECTIONS UNKNOWN 07/05/21 [History] Hx Tetanus, Diphtheria Vaccination/Date Given: Yes Hx Influenza Vaccination/Date Given: No Hx Pneumococcal Vaccination/Date Given: No Immunizations Up to Date: Yes Travel Risk - International Travel Have you traveled outside of the country in past 3 weeks: No - Coronavirus Screening Are you exhibiting any of the following symptoms?: No Close contact with a COVID-19 positive Pt in past 14-21 Days: No - Vaccine Status Have you recieved a Covid-19 vaccination: No - Review of Systems Constitutional: No Symptoms Eyes: No Symptoms Ears, Nose, & Throat: No Symptoms Respiratory: No Symptoms Cardiac: No Symptoms Abdominal/Gastrointestinal: No Symptoms Genitourinary Symptoms: Flank Pain Musculoskeletal: Back Pain Skin: No Symptoms Neurological: No Symptoms Psychological: No Symptoms Endocrine: No Symptoms Hematologic/Lymphatic: No Symptoms Immunological/Allergic: No Symptoms - Past Medical History Pertinent Past Medical History: Yes Neurological History: No Pertinent History ENT History: No Pertinent History Cardiac History: Hypertension Respiratory History: No Pertinent History Endocrine Medical History: No Pertinent History Musculoskeletal History: Fractures, Osteoporosis GI Medical History: No Pertinent History History: No Pertinent History Psycho-Social History: No Pertinent History Female Reproductive Disorders: No Pertinent History Other Medical History: hysterectomy (04/12/2020), L shoulder surgery (2017), R wrist fracture (had fixator, ~10 years ago) - Past Surgical History Past Surgical History: Yes Neuro Surgical History: No Pertinent History Cardiac: No Pertinent History Respiratory: No Pertinent History Gastrointestinal: No Pertinent History Genitourinary: No Pertinent History Musculoskeletal: Orthopedic Surgery Female Surgical History: Hysterectomy, Tubal Ligation Other Surgical History: LUMP REMOVED FROM NECK, lt shoulder repair - Social History Smoking Status: Current every day smoker How long have you smoked: 20 years Exposure to second hand smoke: No Drug Use: none Patient Lives Alone: No - Female History Hx Now: No - Nursing Vital Signs Nursing Vital Signs: Initial Vital Signs Temperature 98.4 F 07/05/21 19:22 Pulse Rate 87 07/05/21 19:22 Respiratory Rate 20 07/05/21 19:22 Blood Pressure 250/123 07/05/21 19:22 O2 Sat by Pulse Oximetry 98 07/05/21 19:22 Pain Scale Pain Intensity [Mid to lower 8 back] Pain Intensity 4 - Physical Exam General Appearance: no apparent distress, alert Eye Exam: PERRL/EOMI, eyes nml inspection Ears, Nose, Throat Exam: normal ENT inspection, TMs normal, pharynx normal, moist mucous membranes Neck Exam: normal inspection, non-tender, supple, full range of motion Respiratory Exam: normal breath sounds, lungs clear Cardiovascular Exam: regular rate/rhythm, normal heart sounds Gastrointestinal Exam: soft, normal bowel sounds, tenderness, other (Mild right flank tenderness) Back Exam: normal inspection, normal range of motion, No CVA tenderness, No vertebral tenderness Extremity Exam: normal inspection, normal range of motion, pelvis stable Neurologic Exam: alert, oriented x 3, cooperative Skin Exam: normal color SpO2 Interpretation: normal SpO2: 98 O2 Delivery: Room Air Ordered Tests: Active Orders 24 hr Category Date Time Status EKG-ER Only STAT Care 07/05/21 19:41 Active IV Insertion STAT Care 07/05/21 19:41 Active NPO (ED) STAT Care 07/05/21 19:41 Active CTA ABD/PEL W FEM RUNOFF [CT] Routine Exams 07/05/21 19:51 Taken CTA CHEST W AND/OR WO [CT] Routine Exams 07/05/21 19:51 Taken CBC W DIFF Stat Lab 07/05/21 20:05 Completed CMP Stat Lab 07/05/21 20:05 Completed LIPASE Stat Lab 07/05/21 20:05 Completed Lactic Acid Stat Lab 07/05/21 19:41 Completed TROPONIN Q3H Lab 07/05/21 20:05 Completed TROPONIN Q3H Lab 07/05/21 22:45 Ordered TROPONIN Q3H Lab 07/06/21 01:45 Ordered TROPONIN Q3H Lab 07/06/21 04:45 Ordered TROPONIN Q3H Lab 07/06/21 07:45 Ordered UA W/RFX UR CULTURE Stat Lab 07/05/21 20:47 Completed Medication Summary Discontinued Medications Generic Name Dose Route Start Last Admin Trade Name Freq PRN Reason Stop Dose Admin Hydralazine HCl 10 mg 07/05/21 19:42 07/05/21 19:52 Hydralazine Hcl 20 Mg/Ml Vial IV 07/05/21 19:43 10 mg STAT ONE Administration Hydralazine HCl Confirm 07/05/21 19:51 Hydralazine Hcl 20 Mg/Ml Vial Administered 07/05/21 19:52 Dose 20 mg .ROUTE .STK-MED ONE Morphine Sulfate 4 mg 07/05/21 19:41 07/05/21 19:53 Morphine Sulfate 4 Mg/Ml Injection IV 07/05/21 19:42 4 mg STAT ONE Administration Morphine Sulfate Confirm 07/05/21 19:51 Morphine Sulfate 4 Mg/Ml Injection Administered 07/05/21 19:52 Dose 4 mg .ROUTE .STK-MED ONE Ondansetron HCl 4 mg 07/05/21 19:41 07/05/21 19:52 Ondansetron Hcl 4 Mg/2 Ml Vial IV 07/05/21 19:42 4 mg STAT ONE Administration Ondansetron HCl Confirm 07/05/21 19:51 Ondansetron Hcl 4 Mg/2 Ml Vial Administered 07/05/21 19:52 Dose 4 mg .ROUTE .STK-MED ONE Lab/Rad Data: Laboratory Result Diagrams 07/05/21 20:05 07/05/21 20:05 Laboratory Results 07/05/21 07/05/21 07/05/21 Range/Units 20:47 20:05 20:05 WBC (4.0-10.5) K/mm3 RBC (4.1-5.4) M/mm3 Hgb (12.0-16.0) gm/dl Hct (35-47) % MCV (78-100) fl MCH (26-32) pg MCHC (32-36) g/dl RDW (11.5-14.0) % Plt Count (150-450) K/mm3 MPV (7.5-11.0) fl Gran % (36.0-66.0) % Eos # (Auto) (0-0.5) Absolute Lymphs (auto) (1.0-4.6) Absolute Monos (auto) (0.0-1.3) Lymphocytes % (24.0-44.0) % Monocytes % (0.0-12.0) % Eosinophils % (0.00-5.0) % Basophils % (0.0-0.4) % Absolute Granulocytes (1.4-6.9) Basophils # (0-0.4) Sodium 139 (137-145) mmol/L Potassium 4.0 (3.5-5.1) mmol/L Chloride 101 (98-107) mmol/L Carbon Dioxide 29 (22-30) mmol/L Anion Gap 12.7 (5-15) MEQ/L BUN 17 (7-17) mg/dL Creatinine 0.71 (0.52-1.04) mg/dL Estimated GFR > 60.0 ML/MIN Glucose 107 H (74-106) mg/dL Lactic Acid (0.4-2.0) Calcium 9.7 (8.4-10.2) mg/dL Total Bilirubin 0.40 (0.2-1.3) mg/dL AST 33 (14-36) U/L ALT 27 (0-35) U/L Alkaline Phosphatase 296 H (38-126) U/L Troponin I < 0.012 (0.000-0.034) ng/mL Serum Total Protein 7.9 (6.3-8.2) g/dL Albumin 4.4 (3.5-5.0) g/dL Lipase 79 (23-300) U/L Urine Color STRAW (YELLOW) Urine Appearance CLEAR (CLEAR) Urine pH 6.0 (5-6) Ur Specific [place] 1.005 (1.005-1.025) Urine Protein NEGATIVE (Negative) Urine Ketones NEGATIVE (NEGATIVE) Urine Blood NEGATIVE (0-5) Voidio/ul Urine Nitrite NEGATIVE (NEGATIVE) Urine Bilirubin NEGATIVE (NEGATIVE) Urine Urobilinogen NEGATIVE (0-1) mg/dL Ur Leukocyte Esterase NEGATIVE (NEGATIVE) Urine WBC (Auto) NONE (0-5) /HPF Urine RBC (Auto) NONE (0-2) /HPF U Epithel Cells (Auto) NONE (FEW) /HPF Urine Bacteria (Auto) NONE (NEGATIVE) /HPF Urine Culture Reflexed NO (NO) Urine Glucose NEGATIVE (NEGATIVE) mg/dL 07/05/21 07/05/21 Range/Units 20:05 19:41 WBC 9.2 (4.0-10.5) K/mm3 RBC 4.40 (4.1-5.4) M/mm3 Hgb 12.8 (12.0-16.0) gm/dl Hct 40.0 (35-47) % MCV 90.9 (78-100) fl MCH 29.1 (26-32) pg MCHC 32.0 (32-36) g/dl RDW 14.6 H (11.5-14.0) % Plt Count 283 (150-450) K/mm3 MPV 10.8 (7.5-11.0) fl Gran % 80.5 H (36.0-66.0) % Eos # (Auto) 0.01 (0-0.5) Absolute Lymphs (auto) 1.29 (1.0-4.6) Absolute Monos (auto) 0.47 (0.0-1.3) Lymphocytes % 14.1 L (24.0-44.0) % Monocytes % 5.1 (0.0-12.0) % Eosinophils % 0.1 (0.00-5.0) % Basophils % 0.2 (0.0-0.4) % Absolute Granulocytes 7.36 H (1.4-6.9) Basophils # 0.02 (0-0.4) Sodium (137-145) mmol/L Potassium (3.5-5.1) mmol/L Chloride (98-107) mmol/L Carbon Dioxide (22-30) mmol/L Anion Gap (5-15) MEQ/L BUN (7-17) mg/dL Creatinine (0.52-1.04) mg/dL Estimated GFR ML/MIN Glucose (74-106) mg/dL Lactic Acid 0.6 (0.4-2.0) Calcium (8.4-10.2) mg/dL Total Bilirubin (0.2-1.3) mg/dL AST (14-36) U/L ALT (0-35) U/L Alkaline Phosphatase (38-126) U/L Troponin I (0.000-0.034) ng/mL Serum Total Protein (6.3-8.2) g/dL Albumin (3.5-5.0) g/dL Lipase (23-300) U/L Urine Color (YELLOW) Urine Appearance (CLEAR) Urine pH (5-6) Ur Specific [place] (1.005-1.025) Urine Protein (Negative) Urine Ketones (NEGATIVE) Urine Blood (0-5) Ovidio/ul Urine Nitrite (NEGATIVE) Urine Bilirubin (NEGATIVE) Urine Urobilinogen (0-1) mg/dL Ur Leukocyte Esterase (NEGATIVE) Urine WBC (Auto) (0-5) /HPF Urine RBC (Auto) (0-2) /HPF U Epithel Cells (Auto) (FEW) /HPF Urine Bacteria (Auto) (NEGATIVE) /HPF Urine Culture Reflexed (NO) Urine Glucose (NEGATIVE) mg/dL - Progress Progress: improved, re-examined Progress Note: 07/05/21 22:33 Patient has negative neuro exam in lower extremities. No headache, no visual symptoms, nonfocal neuro exam. Given morphine and hydralazine, pain and blood pressure is improved and currently in 150s. Patient has not filled his lisinopril and will send to the pharmacy and advised to take it regularly. I have obtained CTA chest abdomen pelvis with runoff showing remote T8/9/11 fractu re and subacute fracture T12. Patient does not have definitive tenderness in the vertebra. We will give her pain medication and outpatient spine surgery follow-up recommended. Counseled on medication compliance for hypertension, tobacco cessation counseling. Discussed signs symptoms of uncontrolled hypertension emergencies needing return to ER which she seems understanding. She is advised to use cane for ambulation to avoid a fall. Counseled pt/family regarding: lab results, diagnosis, need for follow-up, rad results, smoking cessation - Departure Departure Disposition: Home Clinical Impression: Thoracic spine fracture, Uncontrolled hypertension Condition: Stable Critical Care Time: No Referrals: YAMILE RODRIGUEZ, [Primary Care Provider] - Follow up/PCP as directed (Tomorrow for evaluation) WIL MEI MD [NON-STAFF PHY W/O PRIVILEGES] - Follow up/PCP as directed (Call tomorrow for evaluation) Instructions: Vertebral Compression Fracture (DC), High Blood Pressure Emergencies Additional Instructions: Monitor your blood pressure regularly, keep a log and follow-up with primary care for reevaluation. Take your blood pressure medications regularly. Take low-salt diet. Do not smoke. Follow-up with spine surgery for reevaluation. Use cane for ambulation all the time to avoid a fall pleuritic pain medications as needed Prescriptions: Hydrocodone/Acetaminophen [Hydrocodone-Acetamin 5-325 mg] 1 tab PO Q6HPRN PRN 3 Days #12 tablet MDD 4 PRN Reason: Pain Lisinopril 10 mg [Zestril 10 MG] 10 mg PO DAILY 30 Days #30 tablet
[2021-07-05] MEDS ORDERED: Zofran 4 MG/2 ML VIAL ONE (19:51)
[2021-07-05] MEDS ORDERED: MORPHINE SULFATE 4 MG INJ ONE (19:51)
[2021-07-05] MEDS ORDERED: APRESOLINE 20 MG/ML INJ ONE (19:51)
[2021-07-05 20:12] LABS: Absolute Neutrophil Ct (ANC) 7.36 (1.4-6.9); Basophil (Absolute #) 0.02 (0-0.4); Eosinophil % 0.1 % (0.00-5.0); Eosinophil (Absolute #) 0.01 (0-0.5); Hemoglobin 12.8 gm/dl (12.0-16.0); Lymphocyte (Absolute #) 1.29 (1.0-4.6); Lymphocytes % 14.1 % (24.0-44.0); Mean Cell Volume 90.9 fl (78-100); Mean Corpuscular Hemoglobin 29.1 pg (26-32); Mean Platelet Volume 10.8 fl (7.5-11.0); Monocyte (Absolute #) 0.47 (0.0-1.3); Monocytes % 5.1 % (0.0-12.0); Neutrophil % 80.5 % (36.0-66.0); Platelet Count 283 K/mm3 (150-450); Red Cell Distribution Width 14.6 % (11.5-14.0); White Blood Count 9.2 K/mm3 (4.0-10.5)
[2021-07-05 20:24] LABS: ALBUMIN 4.4 g/dL (3.5-5.0); ALKALINE PHOSPHATASE 296 U/L (38-126); ANION GAP 12.7 MEQ/L (5-15); BLOOD UREA NITROGEN 17 mg/dL (7-17); CHLORIDE 101 mmol/L (98-107); Calcium 9.7 mg/dL (8.4-10.2); Carbon Dioxide 29 mmol/L (22-30); Creatinine 1 0.71 mg/dL (0.52-1.04); EST GLOMERULAR FILTRATION RATE > 60.0 ML/MIN; Glucose 107 mg/dL (74-106); LIPASE 79 U/L (23-300); SGOT/AST 33 U/L (14-36); SGPT/ALT 27 U/L (0-35); SODIUM 139 mmol/L (137-145); Total Protein 7.9 g/dL (6.3-8.2)
[2021-07-05 21:10] LABS: Appearance CLEAR (CLEAR); Bilirubin NEGATIVE (NEGATIVE); Blood NEGATIVE Ery/ul (0-5); Glucose NEGATIVE (NEGATIVE); Ketones NEGATIVE (NEGATIVE); Leukocyte Esterase NEGATIVE (NEGATIVE); Nitrite NEGATIVE (NEGATIVE); Protein,Urine Dip NEGATIVE (Negative); Specific Gravity 1.005 (1.005-1.025); Urobilinogen NEGATIVE mg/dL (0-1)
[2021-07-05 22:29] VITALS: BP 155/84; PULSE 89
[2021-07-05 22:38] VITALS: O2SAT 98
--- NOTE | 2021-07-06 09:01 | XRAY ---
Indication: Back pain. Aneurysm/dissection. Conventional contrast enhanced CTA abdominal aorta with bilateral runoff performed using 125 cc Isovue 370 contrast. Two-dimensional sagittal and coronal reformatted images obtained. Additional 3-dimensional reformatted images obtained using a separate workstation. Comparison: None. There is a conventional CT abdomen/pelvis with contrast exam December 30, 2019. CTA chest reported separately. Abdominal aorta demonstrates mild scattered arteriosclerotic disease without aneurysm/dissection. Normal branching celiac, superior mesenteric, single left/right renal arteries, and inferior mesenteric arteries. Minimal calcifications at origin celiac artery without critical stenosis or poststenotic dilatation. Remaining great branches are widely patent. Left leg runoff demonstrates mild scattered arteriosclerotic disease in the common iliac and external iliac arteries. Widely patent external iliac/common femoral arteries. Deep femoral artery demonstrates very minimal scattered disease. Superficial femoral artery demonstrates minimal/mild scattered arteriosclerotic disease greatest at the level of the adductor hiatus where there is approximately 50% stenosis. Mild/moderate scattered disease seen in the popliteal artery with high-grade 99% stenosis in the proximal segment. Trifurcation vessels are attenuated and taper off by mid lower leg level. No opacified vessel crosses the ankle joint to supply the foot. Right leg runoff emesis mild scattered arterial struct disease in the common iliac and external iliac arteries. External iliac/common femoral arteries are widely patent. Very minimal scattered disease in the deep femoral artery. Superficial femoral artery demonstrate minimal/mild scattered arteriosclerotic disease greatest at the level of the adductor hiatus where there is approximately 50% stenosis. Popliteal artery demonstrates mild scattered disease with 50-60% stenosis in the proximal segment. Trifurcation vessels are also attenuated and taper off by mid lower leg level. No opacified vessel crosses the ankle to supply the foot. Noncontrasted stomach and bowel loops nonobstructed. Mild diffuse fatty liver. There has been hysterectomy. No free fluid/air. Remaining gallbladder, pancreas, spleen, adrenal glands, kidneys, ureters, and bladder are unremarkable. Osseous structures again demonstrates osteopenia and L4 vertebral hemangioma. Impression: 1. CTA abdominal aorta again demonstrates mild scattered arteriosclerotic disease including origin celiac artery without aneurysm/dissection. 2. Left leg runoff demonstrates scattered arteriosclerotic disease with 50% stenosis distal superficial femoral artery and high-grade 99% stenosis in the popliteal artery. No opacified vessel crosses the ankle joint. 3. Right leg runoff demonstrates scattered arteriosclerotic disease with 50% stenosis distal superficial femoral artery and 50-60% stenosis in the popliteal artery. No opacified vessel crosses the ankle joint. 4. Again incidental fatty liver and chronic bony findings.
--- NOTE | 2021-07-07 06:56 | XRAY ---
Indication: Back pain. Aneurysm/dissection. Conventional contrast enhanced CTA chest performed using 125 cc Isovue 370 contrast. Two-dimensional sagittal and coronal reformatted images obtained. Additional 3-dimensional reformatted images obtained using a separate workstation. Comparison: CT chest without contrast exam July 11, 2020. Aorta again demonstrates mild scattered arteriosclerotic disease without aneurysm/dissection. Normal patent branching right brachiocephalic, left common carotid, and left subclavian arteries. No central pulmonary embolus. Heart borderline enlarged. No pathologic mediastinal/hilar lymphadenopathy. Again incompletely visualized heterogeneous thyromegaly. Lungs again hyperinflated with diffuse scattered fibrosis/scarring. Inferior right upper lobe demonstrates stable 4 x 9 mm indeterminant subpleural noncalcified nodule. No new pulmonary mass, infiltrate, consolidation, or effusion. Bony thorax again demonstrates osteopenia, remote T8/T9/T11 endplate fractures, and small superior T7 Schmorl node. T12 vertebral body demonstrates new acute to subacute appearing superior endplate fracture with approximately 25% height loss with posterior fracture fragment slightly encroaching on the spinal canal. CTA abdomen/pelvis reported separately. Impression: 1. CTA chest with contrast demonstrates stable mildly arteriosclerotic aorta without aneurysm/dissection. 2. New acute to subacute appearing T12 superior endplate fracture as detailed. 3. Again chronic findings including pulmonary fibrosis/scarring, indeterminant right upper lobe noncalcified micro-nodule, incompletely visualized heterogeneous thyromegaly, and chronic bony findings.
== END 2021-07-05 22:46 | disposition home or self-care (01) ==
LOC: ED 19:02
DX: M80.08XA Age-related osteoporosis with current pathological fracture, vertebra(e), initial encounter for fracture (principal); I10 Essential (primary) hypertension; Z72.0 Tobacco use; Z79.52 Long term (current) use of systemic steroids; Z79.891 Long term (current) use of opiate analgesic
CPT/HCPCS: 36000; 36415; 71275; 75635; 80053; 81001; 83605; 83690; 84484; 85025; 93005; 96374; 96375; 99284; J0360; J2270; J2405

== ENCOUNTER 2024-07-29 00:21 | Observation (INO) | payer MEDICARE ==
[2024-07-29] MEDS ORDERED: solu-MEDROL ONE (00:57)
[2024-07-29] MEDS ORDERED: Sterile H2O 10 ml IJ ONE (00:57)
[2024-07-29] MEDS ORDERED: DUONEB 0.5-3 MG/3 ml Neb IH ONE ×2 (00:58→05:51)
[2024-07-29] MEDS: solu-MEDROL 125 MG, Sterile H2O 10 ml 2 ML IV ONE (00:59)
--- NOTE | 2024-07-29 01:00 | ERPHSYRPT ---
- History of Present Illness Time Seen by Provider: 07/29/24 00:55 Source: patient Exam Limitations: no limitations Patient Subjective Stated Complaint: cough, body aches, nausea Triage Nursing Assessment: Pt ambulated into ER without difficulty, grandson at bedside. Pt c/o prod cough, nausea and body aches since Saturday. Pt was 86% on rm air, placed on 2L n/c, O2 sats increased to 94%. Pt's lungs are wheezy and rhonchi noted ant and post bilat. Heart tones reg, no edema noted. Pt denies any chest pain. Pt has prod cough with thick cream sputum at times and other times just a "rattley" cough. Pt smokes 1.5 PPD. Physician History: Patient is a 64-year-old female current smoker presents to our ED for evaluation of cough shortness of breath and bodyaches. Symptoms started 1 to 2 days ago. Symptoms have been progressive. Patient denies pain. Mild nausea. No vomiting. Upon arrival to our ED patient was observed to be hypoxic. He does not wear oxygen at home. O2 sat upon arrival was 86% on room air. Patient placed on 2 L nasal cannula. O2 sat increased from 86% to 94%. Symptoms are mild to moderate in intensity. Symptoms worse with exertion. No associated rash fever or diarrhea. Grandson at bedside. Patient voices no other complaints or concerns at this time. Portions of this note were created with voice recognition technology. There may be grammatical, spelling, punctuation or sound alike errors Timing/Duration: yesterday Severity: moderate Modifying Factors: Improves With: nothing Associated Symptoms: shortness of breath Allergies/Adverse Reactions: No Known Drug Allergies Allergy (Verified 07/29/24 00:42) Home Medications: No Reportable Medications [No Reported Medications] 07/29/24 [History] Hx Tetanus, Diphtheria Vaccination/Date Given: (unknown) Hx Influenza Vaccination/Date Given: No Hx Pneumococcal Vaccination/Date Given: No Travel Risk - International Travel Have you traveled outside of the country in past 3 weeks: No - Emerging Infectious Disease Symptoms: Cough: New Onset, Headaches/Body Aches/ Comment: nausea - Review of Systems Constitutional: No Symptoms, No Fever, No Chills Eyes: No Symptoms Ears, Nose, & Throat: No Symptoms Respiratory: No Symptoms, No Cough, No Dyspnea Cardiac: No Symptoms, No Chest Pain, No Edema, No Syncope Abdominal/Gastrointestinal: No Symptoms, No Abdominal Pain, No Nausea, No Vomiting, No Diarrhea Genitourinary Symptoms: No Symptoms, No Dysuria Musculoskeletal: No Symptoms, No Back Pain, No Neck Pain Skin: No Symptoms, No Rash Neurological: No Symptoms, No Dizziness, No Focal Weakness, No Sensory Changes Psychological: No Symptoms Endocrine: No Symptoms Hematologic/Lymphatic: No Symptoms Immunological/Allergic: No Symptoms All Other Systems: Reviewed and Negative - Past Medical History Pertinent Past Medical History: Yes Neurological History: No Pertinent History ENT History: No Pertinent History Cardiac History: Hypertension Respiratory History: No Pertinent History Endocrine Medical History: No Pertinent History Musculoskeletal History: Fractures, Osteoporosis GI Medical History: No Pertinent History History: No Pertinent History Psycho-Social History: No Pertinent History Female Reproductive Disorders: No Pertinent History Other Medical History: hysterectomy (04/12/2020), L shoulder surgery (2017), R wrist fracture (had fixator, ~10 years ago) - Past Surgical History Past Surgical History: Yes Neuro Surgical History: No Pertinent History Cardiac: No Pertinent History Respiratory: No Pertinent History Gastrointestinal: No Pertinent History Genitourinary: No Pertinent History Musculoskeletal: Orthopedic Surgery Female Surgical History: Hysterectomy, Tubal Ligation Other Surgical History: LUMP REMOVED FROM NECK, lt shoulder repair - Social History Smoking Status: Current every day smoker How long have you smoked: 20 yrs Exposure to second hand smoke: No Drug Use: none - Social Determinants of Health Will the patient participate in the screening: Yes Do you worry about a steady place to live?: No Do you have any problems with any of the following?: No known problems In the past 12 months,have you had to go without utilities?: No Transportation Issues: No Has anyone in your support network made you feel unsafe?: No Have you or anyone in your house had to go without enough: No - Nursing Vital Signs Nursing Vital Signs: Initial Vital Signs Temperature 97.0 F 07/29/24 00:27 Pulse Rate 92 H 07/29/24 00:27 Respiratory Rate 20 07/29/24 00:27 Blood Pressure 112/62 07/29/24 00:27 O2 Sat by Pulse Oximetry 86 L 07/29/24 00:27 Pain Scale Pain Intensity 0 - Physical Exam General Appearance: no apparent distress, alert Eye Exam: PERRL/EOMI, eyes nml inspection Ears, Nose, Throat Exam: normal ENT inspection, TMs normal, pharynx normal, moist mucous membranes Neck Exam: normal inspection, non-tender, supple, full range of motion Respiratory Exam: normal breath sounds, diminished breath sounds, c rackles/rales, wheezing, No respiratory distress Cardiovascular Exam: regular rate/rhythm, normal heart sounds, normal peripheral pulses Gastrointestinal/Abdomen Exam: soft, normal bowel sounds, No tenderness, No mass Back Exam: normal inspection, normal range of motion, No CVA tenderness, No vertebral tenderness Extremity Exam: normal inspection, normal range of motion, pelvis stable Neurologic Exam: alert, oriented x 3, cooperative, normal mood/affect, sensation nml, No motor deficits Skin Exam: normal color, warm, dry, No rash Lymphatic Exam: No adenopathy SpO2 Interpretation: normal SpO2: 86 O2 Delivery: Room Air - Course Nursing assessment & vital signs reviewed: Yes EKG Interpreted by Me: RATE (81), Sinus Rhythm, NORMAL AXIS, NORMAL INTERVALS, NORMAL QRS Ordered Tests: Active Orders 24 hr Category Date Time Status Winery Worker STAT Care 07/29/24 00:54 Active EKG-ER Only STAT Care 07/29/24 00:53 Active IV Insertion STAT Care 07/29/24 00:53 Active Pulse Oximetry (ED) STAT Care 07/29/24 00:53 Active CHEST 1 VIEW (PORTABLE) Stat Exams 07/29/24 00:54 Completed BLOOD CULTURE Stat Lab 07/29/24 01:10 Received CBC W DIFF Stat Lab 07/29/24 01:10 Completed CMP Stat Lab 07/29/24 01:10 Completed NT PRO BNPII Stat Lab 07/29/24 01:30 Completed TROPONIN Q4H Lab 07/29/24 01:10 Completed TROPONIN Q4H Lab 07/29/24 04:00 Completed TROPONIN Q4H Lab 07/29/24 09:00 Ordered Respiratory Therapy Assessment DAILY RT 07/29/24 01:06 Active Transfer Order Routine Transfer 07/29/24 Ordered Medication Summary Discontinued Medications Generic Name Dose Route Start Last Admin Trade Name Freq PRN Reason Stop Dose Admin Albuterol/Ipratropium 3 ml 07/29/24 00:53 07/29/24 01:05 Ipratropium/Albuterol Sulfate 3 Ml Ampul.Neb IH 07/29/24 00:54 3 ml STAT ONE Administration Albuterol/Ipratropium Confirm 07/29/24 00:58 Ipratropium/Albuterol Sulfate 3 Ml Ampul.Neb Administered 07/29/24 00:59 Dose 3 ml IH .STK-MED ONE Methylprednisolone Sodium 0 mg 07/29/24 00:53 07/29/24 00:59 Succinate 125 mg/ Sterile IV 07/29/24 00:54 125 mg Water 2 ml STAT ONE Administration Furosemide 20 mg 07/29/24 02:10 07/29/24 02:11 Furosemide 20 Mg/Vial IV 07/29/24 02:11 20 mg STAT ONE Administration Furosemide Confirm 07/29/24 02:11 Furosemide 20 Mg/Vial Administered 07/29/24 02:12 Dose 20 mg .ROUTE .STK-MED ONE Ceftriaxone Sodium 1 gm in 100 mls @ 200 mls/hr 07/29/24 02:13 07/29/24 03:22 Rocephin 1 Gm / 100 Ml Nacl IV 07/29/24 02:42 Infused STAT ONE Infusion Azithromycin 500 mg in 250 mls @ 250 mls/hr 07/29/24 02:13 07/29/24 04:08 Zithromax 500 Mg/ 250 Ml Nacl Premix IV 07/29/24 03:12 Infused STAT STA Infusion Ceftriaxone Sodium Confirm 07/29/24 02:17 Rocephin 1 Gm / 100 Ml Nacl Administered 07/29/24 02:18 Dose 1 gm in 100 mls @ ud IV .STK-MED ONE Azithromycin Confirm 07/29/24 02:54 Zithromax 500 Mg/ 250 Ml Nacl Premix Administered 07/29/24 02:55 Dose 500 mg in 250 mls @ ud IV .STK-MED ONE Methylprednisolone Sodium Succinate Confirm 07/29/24 00:57 Methylprednis Sod Succ 125 Mg/2 Ml Vial Administered 07/29/24 00:58 Dose 125 mg .ROUTE .STK-MED ONE Sterile Water Confirm 07/29/24 00:57 Water For Injection,Sterile 10 Ml Vial Administered 07/29/24 00:58 Dose 10 ml IJ .STK-MED ONE Lab/Rad Data: Laboratory Result Diagrams 07/29/24 01:10 07/29/24 01:10 Laboratory Results 07/29/24 07/29/24 07/29/24 Range/Units 04:00 01:30 01:10 WBC (3.98-10.04) x10^3/uL RBC (3.93-5.22) x10^6/uL Hgb (11.2-15.7) g/dL Hct (34.1-44.9) % MCV (79.4-94.8) fL MCH (25.6-32.2) pg MCHC (32.2-35.5) g/dL RDW (11.7-14.4) % Plt Count (182-369) x10^3/uL MPV (9.4-12.3) fL Gran % (34.0-71.1) % Immature Gran % (Auto) (0.001-0.429) % Nucleat RBC Rel Count (0.00-0.2) % Eos # (Auto) (0.04-0.36) x10^3/uL Immature Gran # (Auto) (0.001-0.031) x10^3u/L Absolute Lymphs (auto) (1.18-3.74) x10^3/uL Absolute Monos (auto) (0.24-0.86) x10^3/uL Absolute Nucleated RBC (0.00-0.012) x10^3u/L Lymphocytes % (19.3-51.7) % Monocytes % (4.7-12.5) % Eosinophils % (0.7-5.8) % Basophils % (0.1-1.2) % Absolute Granulocytes (1.56-6.13) x10^3/uL Basophils # (0.01-0.08) x10^3/uL Sodium 134 L (135-145) mmol/L Potassium 3.9 (3.5-5.1) mmol/L Chloride 95 L (98-107) mmol/L Carbon Dioxide 21 L (22-30) mmol/L Anion Gap 21.2 H (5-15) MEQ/L BUN 42 H (7-17) mg/dL Creatinine 2.58 H (0.52-1.04) mg/dL Estimated GFR 19.9 ML/MIN Glucose 108 H (74-106) mg/dL Calcium 8.8 (8.4-10.2) mg/dL Total Bilirubin 1.00 (0.2-1.3) mg/dL AST 56 H (14-36) U/L ALT 24 (0-35) U/L Alkaline Phosphatase 196 H (38-126) U/L Troponin I 0.023 (0.000-0.033) ng/mL NT-Pro-B Natriuret Pep 2880 (<300) pg/mL Serum Total Protein 7.9 (6.3-8.2) g/dL Albumin 4.1 (3.5-5.0) g/dL Influenza Type A Ag (NEGATIVE) Influenza Type B Ag (NEGATIVE) RSV (PCR) (NEGATIVE) SARS-CoV-2 (PCR) (NEGATIVE) 07/29/24 07/29/24 07/29/24 Range/Units 01:10 01:10 00:15 WBC 9.2 (3.98-10.04) x10^3/uL RBC 4.86 (3.93-5.22) x10^6/uL Hgb 14.0 (11.2-15.7) g/dL Hct 43.1 (34.1-44.9) % MCV 88.7 (79.4-94.8) fL MCH 28.8 (25.6-32.2) pg MCHC 32.5 (32.2-35.5) g/dL RDW 14.8 H (11.7-14.4) % Plt Count 199 (182-369) x10^3/uL MPV 10.9 (9.4-12.3) fL Gran % 72.7 H (34.0-71.1) % Immature Gran % (Auto) 0.5 H (0.001-0.429) % Nucleat RBC Rel Count 0.0 (0.00-0.2) % Eos # (Auto) 0 L (0.04-0.36) x10^3/uL Immature Gran # (Auto) 0.05 H (0.001-0.031) x10^3u/L Absolute Lymphs (auto) 1.76 (1.18-3.74) x10^3/uL Absolute Monos (auto) 0.70 (0.24-0.86) x10^3/uL Absolute Nucleated RBC 0.00 (0.00-0.012) x10^3u/L Lymphocytes % 19.0 L (19.3-51.7) % Monocytes % 7.6 (4.7-12.5) % Eosinophils % 0.0 L (0.7-5.8) % Basophils % 0.2 (0.1-1.2) % Absolute Granulocytes 6.71 H (1.56-6.13) x10^3/uL Basophils # 0.02 (0.01-0.08) x10^3/uL Sodium (135-145) mmol/L Potassium (3.5-5.1) mmol/L Chloride (98-107) mmol/L Carbon Dioxide (22-30) mmol/L Anion Gap (5-15) MEQ/L BUN (7-17) mg/dL Creatinine (0.52-1.04) mg/dL Estimated GFR ML/MIN Glucose (74-106) mg/dL Calcium (8.4-10.2) mg/dL Total Bilirubin (0.2-1.3) mg/dL AST (14-36) U/L ALT (0-35) U/L Alkaline Phosphatase (38-126) U/L Troponin I 0.040 H* (0.000-0.033) ng/mL NT-Pro-B Natriuret Pep (<300) pg/mL Serum Total Protein (6.3-8.2) g/dL Albumin (3.5-5.0) g/dL Influenza Type A Ag POSITIVE A (NEGATIVE) Influenza Type B Ag NEGATIVE (NEGATIVE) RSV (PCR) NEGATIVE (NEGATIVE) SARS-CoV-2 (PCR) NEGATIVE (NEGATIVE) - Progress Progress: improved Progress Note: 64-year-old female presents to our ED for evaluation of shortness of breath. Patient was hypoxic upon presentation at 86% on room air. She normally does not require oxygen. Patient currently on 2 L nasal cannula. Physical exam reveals crackles raising diminished breath sounds. Patient is a current smoker. Patient is influenza A positive. Workup reveals initial troponin 0.04. Repeat troponin improved to 0.023, BNP elevated at 2800. Chest x-ray per my review appears to be indicative of pulmonary congestion. Lasix administered. Creatinine elevated at 2.58. This indicates acute kidney injury as per patient's previous creatinine was within normal limits. Blood cultures obtained. Antibiotics initiated. Plan of care discussed with patient. She agrees to admission at [facility] for further evaluation and treatment. Management discussed with hospitalist who accepts admission to observation at 2:10 AM. Portions of this note were created with voice recognition technology. There may be grammatical, spelling, punctuation or sound alike errors Complexity of problem addressed is moderate acute complicated. No critical care time. Complex of data reviewed and analyzed is extensive. Test ordered chest reviewed results analyzed and correlated clinically with history and physical exam. Risk of complication and or risk of morbidity/mortality of patient management is high. Patient requires hospitalization for further evaluation and treatment. Vital stable. Time spent admit patient approximately 15 minutes. Plan of care established for shared decision making. No social determinants of health present to impede follow-up. Portions of this note were created with voice recognition technology. There may be grammatical, spelling, punctuation or sound alike errors 07/29/24 05:08 Counseled pt/family regarding: lab results, diagnosis, rad results - Departure Departure Disposition: Observation Clinical Impression: Influenza A, Hypoxia, COPD (chronic obstructive pulmonary disease), CHF (congestive heart failure), Elevated brain natriuretic peptide (BNP) level Condition: Stable Critical Care Time: No Referrals: LOUIS MACHUCA MD [Primary Care Provider] - Follow up/PCP as directed Instructions: Heart Failure, Chronic Obstructive Pulmonary Disease
[2024-07-29] MEDS: DUONEB 0.5-3 MG/3 ml Neb IH ONE (01:05)
[2024-07-29 01:09] LABS: INFLUENZA B NEGATIVE (NEGATIVE); RESPIRATORY SYNCTIAL VIRUS NEGATIVE (NEGATIVE); SARS-CoV-2 Xpert Express NEGATIVE (NEGATIVE)
[2024-07-29 01:17] LABS: INFLUENZA A POSITIVE (NEGATIVE)
[2024-07-29 01:28] LABS: Absolute Neutrophil Ct (ANC) 6.71 x10^3/uL (1.56-6.13); BASOPHIL % 0.2 % (0.1-1.2); Basophil (Absolute #) 0.02 x10^3/uL (0.01-0.08); Eosinophil (Absolute #) 0 x10^3/uL (0.04-0.36); Hematocrit 43.1 % (34.1-44.9); IMMATURE GRAN # 0.05 x10^3u/L (0.001-0.031); IMMATURE GRAN % 0.5 % (0.001-0.429); Lymphocyte (Absolute #) 1.76 x10^3/uL (1.18-3.74); Mean Cell Volume 88.7 fL (79.4-94.8); Mean Corpuscular Hemoglobin 28.8 pg (25.6-32.2); Mean Corpuscular Hgb Concent. 32.5 g/dL (32.2-35.5); Mean Platelet Volume 10.9 fL (9.4-12.3); Monocytes % 7.6 % (4.7-12.5); Neutrophil % 72.7 % (34.0-71.1); Platelet Count 199 x10^3/uL (182-369); Red Blood Count 4.86 x10^6/uL (3.93-5.22); Red Cell Distribution Width 14.8 % (11.7-14.4); White Blood Count 9.2 x10^3/uL (3.98-10.04)
--- NOTE | 2024-07-29 02:00 | XRAY ---
CLINICAL HISTORY: sob COMPARISON: No prior studies are available for comparison. TECHNIQUE: X-ray images of the chest were obtained in frontal projections. FINDINGS: Pulmonary Parenchyma: Bilateral mainly basal reticulonodular opacity with possible honeycombing suggesting chronic lung changes/interstitial lung disease. Bilateral mainly right basal pleural thickening. Prominent both debo No evidence of consolidation, collapse, or focal opacities. No pulmonary nodules were identified. No evidence of pleural effusion. Heart and Mediastinum: Heart size and shape are normal. No mediastinal widening or masses. No hilar or mediastinal lymphadenopathy. Bones: Left humeral ORIF with plate and screw. The bony thorax appears intact without fractures or deformities. Soft Tissues: Soft tissues overlying the chest wall are unremarkable. IMPRESSION: 1. Bilateral mainly basal reticulonodular opacity with possible honeycombing suggesting chronic lung changes/interstitial lung disease. please correlate clinically. 2. Bilateral mainly right basal pleural thickening. Electronically Signed by: Raymon Castro MD. (07/29/2024 01:54:52 EST)
[2024-07-29] MEDS: Lasix 20 MG/2 ML IV ONE (02:11)
[2024-07-29] MEDS ORDERED: Lasix 20 MG/2 ML ONE (02:11)
[2024-07-29] MEDS ORDERED: ROCEPHIN 1 GM / 100 ML NaCl 1 GM/100 ML IVPB IV ONE (02:17)
[2024-07-29] MEDS: ROCEPHIN 1 GM / 100 ML NaCl 1 GM/100 ML IVPB IV ONE (02:18)
[2024-07-29 02:36] LABS: ALBUMIN 4.1 g/dL (3.5-5.0); ANION GAP 21.2 MEQ/L (5-15); Calcium 8.8 mg/dL (8.4-10.2); Creatinine 1 2.58 mg/dL (0.52-1.04); EST GLOMERULAR FILTRATION RATE 19.9 ML/MIN; Potassium 3.9 mmol/L (3.5-5.1); Total Protein 7.9 g/dL (6.3-8.2)
[2024-07-29] MEDS ORDERED: Zithromax 500 MG/ 250 ML NaCl Premix 500 MG/250 ML IVPB IV ONE (02:54)
[2024-07-29] MEDS: Zithromax 500 MG/ 250 ML NaCl Premix 500 MG/250 ML IVPB IV STA (02:55)
[2024-07-29] MEDS ORDERED: DUONEB 0.5-3 MG/3 ml Neb IH PRN (06:03)
[2024-07-29] MEDS: DUONEB 0.5-3 MG/3 ml Neb IH SCH (06:03)
--- NOTE | 2024-07-29 07:47 | PCM.HP ---
History of Present Illness - Chief Complaint Chief Complaint: COPD exacerbation, CHF, hypoxia Date: 07/29/24 History of Present Illness: is a 64 year old female with PMHX of current smoker 1 1/2 ppd, and HTN. She presented to our ED on 07/29 for evaluation of cough shortness of breath and body aches. Symptoms started 1 to 2 days ago. Symptoms have been progressive. Patient denies pain. Mild nausea. No vomiting. Upon arrival to our ED patient was observed to be hypoxic. He does not wear oxygen at home. O2 sat upon arrival was 86% on room air. Patient placed on 2 L nasal cannula. O2 sat increased from 86% to 94%. Symptoms are mild to moderate in intensity. Symptoms worse with exertion. No associated rash fever or diarrhea. Tested + for FLu A and started on Tamiflu. 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 Started pt on Ceftriaxone, duonebs, solu-medrol, and Advair for COPD exacerbation. Will make OP f/u appointment with Pulm for new dx pulm fibrosis. Continue IVF for SAMANTA. Patient voices no other complaints or concerns at this time. Trop x1 elevated but trended down. She denies CP, abd pain, N/V/D. - Review of Systems Constitutional: No Fever, No Chills Eyes: No Symptoms Ears, Nose, & Throat: No Symptoms Respiratory: Cough, Short Of Breath, Wheezing Cardiac: No Chest Pain, No Edema, No Syncope Abdominal/Gastrointestinal: No Abdominal Pain, No Nausea, No Vomiting, No Diarrhea Genitourinary Symptoms: No Dysuria Musculoskeletal: No Back Pain, No Neck Pain Skin: No Rash Neurological: No Dizziness, No Focal Weakness, No Sensory Changes Psychological: No Symptoms Endocrine: No Symptoms Hematologic/Lymphatic: No Symptoms Immunological/Allergic: No Symptoms Medications & Allergies Home Medications: Home Medication List No Reportable Medications [No Reported Medications] 07/29/24 [History Confirmed 07/29/24] Allergies/Adverse Reactions: Allergies Allergy/AdvReac Type Severity Reaction Status Date / Time No Known Drug Allergies Allergy Verified 07/29/24 00:42 - Past Medical History Past Medical History: Yes Neurological History: No Pertinent History ENT History: No Pertinent History Cardiac History: Hypertension Respiratory History: No Pertinent History Endocrine Medical History: No Pertinent History Musculoskelatal History: Fractures, Osteoporosis GI Medical History: No Pertinent History History: No Pertinent History Pyscho-Social History: No Pertinent History Reproductive Disorders: No Pertinent History Comment: hysterectomy (04/12/2020), L shoulder surgery (2017), R wrist fracture (had fixator, ~10 years ago) - Past Surgical History Past Surgical History: Yes Neuro Surgical History: No Pertinent History Cardiac History: No Pertinent History Respiratory Surgery: No Pertinent History GI Surgical History: No Pertinent History Genitourinary Surgical Hx: No Pertinent History Musculskeletal Surgical Hx: Orthopedic Surgery Female Surgical History: Hysterectomy, Tubal Ligation Other Surgical History: LUMP REMOVED FROM NECK, lt shoulder repair - Social History Smoking Status: Current every day smoker How long have you smoked: 20 yrs Exposure to second hand smoke: No Alcohol: None Drug Use: none - Social Determinants of Health Will the patient participate in the screening: Yes Do you worry about a steady place to live?: No Do you have any problems with any of the following?: No known problems In the past 12 months,have you had to go without utilities?: No Have you or anyone in your house had to go without enough: No Transportation Issues: No Has anyone in your support network made you feel unsafe?: No Does the patient want assistance with any of the above?: No - Physical Exam Vital Signs: Vital Signs - 24 hr Temp Pulse Resp BP BP Pulse Ox 07/29/24 06:03 73 16 93 L 07/29/24 05:58 97.5 F 81 26 H 115/66 94 L 07/29/24 05:14 86 L 07/29/24 05:00 79 20 113/70 95 07/29/24 04:31 79 26 H 114/73 96 07/29/24 04:00 84 18 107/69 95 07/29/24 03:30 82 28 H 107/70 95 07/29/24 03:00 79 19 111/71 96 07/29/24 02:30 81 22 106/66 97 07/29/24 02:00 78 16 98/67 95 07/29/24 01:39 78 16 90/61 07/29/24 01:32 77 21 90/61 97 07/29/24 01:06 78 17 94 L 07/29/24 01:01 77 25 H 86/55 97 07/29/24 00:56 94 L 07/29/24 00:30 82 26 H 94/64 79 L 07/29/24 00:27 97.0 F 92 H 20 112/62 86 L General Appearance: no apparent distress, alert, thin Neurologic Exam: alert, oriented x 3, cooperative, normal mood/affect, nml cerebellar function, nml station & gait, sensation nml, No motor deficits Eye Exam: PERRL/EOMI, eyes nml inspection Ears, Nose, Throat Exam: normal ENT inspection, TMs normal, pharynx normal, moist mucous membranes Neck Exam: normal inspection, non-tender, supple, full range of motion Respiratory Exam: diminished breath sounds (BLLL), wheezing, No respiratory distress Cardiovascular Exam: regular rate/rhythm, normal heart sounds, normal peripheral pulses Gastrointestinal/Abdomen Exam: soft, normal bowel sounds, No tenderness, No mass Back Exam: normal inspection, normal range of motion, No CVA tenderness, No vertebral tenderness Extremity Exam: normal inspection, normal range of motion, pelvis stable Skin Exam: normal color, warm, dry, No rash Lymphatic Exam: No adenopathy Results - Labs Lab/Micro Results: Lab Results-Last 24 Hours 07/29/24 07/29/24 07/29/24 Range/Units 00:15 01:10 01:10 WBC 9.2 (3.98-10.04) x10^3/uL RBC 4.86 (3.93-5.22) x10^6/uL Hgb 14.0 (11.2-15.7) g/dL Hct 43.1 (34.1-44.9) % MCV 88.7 (79.4-94.8) fL MCH 28.8 (25.6-32.2) pg MCHC 32.5 (32.2-35.5) g/dL RDW 14.8 H (11.7-14.4) % Plt Count 199 (182-369) x10^3/uL MPV 10.9 (9.4-12.3) fL Gran % 72.7 H (34.0-71.1) % Immature Gran % (Auto) 0.5 H (0.001-0.429) % Nucleat RBC Rel Count 0.0 (0.00-0.2) % Eos # (Auto) 0 L (0.04-0.36) x10^3/uL Immature Gran # (Auto) 0.05 H (0.001-0.031) x10^3u/L Absolute Lymphs (auto) 1.76 (1.18-3.74) x10^3/uL Absolute Monos (auto) 0.70 (0.24-0.86) x10^3/uL Absolute Nucleated RBC 0.00 (0.00-0.012) x10^3u/L Lymphocytes % 19.0 L (19.3-51.7) % Monocytes % 7.6 (4.7-12.5) % Eosinophils % 0.0 L (0.7-5.8) % Basophils % 0.2 (0.1-1.2) % Absolute Granulocytes 6.71 H (1.56-6.13) x10^3/uL Basophils # 0.02 (0.01-0.08) x10^3/uL Sodium (135-145) mmol/L Potassium (3.5-5.1) mmol/L Chloride (98-107) mmol/L Carbon Dioxide (22-30) mmol/L Anion Gap (5-15) MEQ/L BUN (7-17) mg/dL Creatinine (0.52-1.04) mg/dL Estimated GFR ML/MIN Glucose (74-106) mg/dL Calcium (8.4-10.2) mg/dL Total Bilirubin (0.2-1.3) mg/dL AST (14-36) U/L ALT (0-35) U/L Alkaline Phosphatase (38-126) U/L Troponin I 0.040 H* (0.000-0.033) ng/mL NT-Pro-B Natriuret Pep (<300) pg/mL Serum Total Protein (6.3-8.2) g/dL Albumin (3.5-5.0) g/dL Influenza Type A Ag POSITIVE A (NEGATIVE) Influenza Type B Ag NEGATIVE (NEGATIVE) RSV (PCR) NEGATIVE (NEGATIVE) SARS-CoV-2 (PCR) NEGATIVE (NEGATIVE) 07/29/24 07/29/24 07/29/24 Range/Units 01:10 01:30 04:00 WBC (3.98-10.04) x10^3/uL RBC (3.93-5.22) x10^6/uL Hgb (11.2-15.7) g/dL Hct (34.1-44.9) % MCV (79.4-94.8) fL MCH (25.6-32.2) pg MCHC (32.2-35.5) g/dL RDW (11.7-14.4) % Plt Count (182-369) x10^3/uL MPV (9.4-12.3) fL Gran % (34.0-71.1) % Immature Gran % (Auto) (0.001-0.429) % Nucleat RBC Rel Count (0.00-0.2) % Eos # (Auto) (0.04-0.36) x10^3/uL Immature Gran # (Auto) (0.001-0.031) x10^3u/L Absolute Lymphs (auto) (1.18-3.74) x10^3/uL Absolute Monos (auto) (0.24-0.86) x10^3/uL Absolute Nucleated RBC (0.00-0.012) x10^3u/L Lymphocytes % (19.3-51.7) % Monocytes % (4.7-12.5) % Eosinophils % (0.7-5.8) % Basophils % (0.1-1.2) % Absolute Granulocytes (1.56-6.13) x10^3/uL Basophils # (0.01-0.08) x10^3/uL Sodium 134 L (135-145) mmol/L Potassium 3.9 (3.5-5.1) mmol/L Chloride 95 L (98-107) mmol/L Carbon Dioxide 21 L (22-30) mmol/L Anion Gap 21.2 H (5-15) MEQ/L BUN 42 H (7-17) mg/dL Creatinine 2.58 H (0.52-1.04) mg/dL Estimated GFR 19.9 ML/MIN Glucose 108 H (74-106) mg/dL Calcium 8.8 (8.4-10.2) mg/dL Total Bilirubin 1.00 (0.2-1.3) mg/dL AST 56 H (14-36) U/L ALT 24 (0-35) U/L Alkaline Phosphatase 196 H (38-126) U/L Troponin I 0.023 (0.000-0.033) ng/mL NT-Pro-B Natriuret Pep 2880 (<300) pg/mL Serum Total Protein 7.9 (6.3-8.2) g/dL Albumin 4.1 (3.5-5.0) g/dL Influenza Type A Ag (NEGATIVE) Influenza Type B Ag (NEGATIVE) RSV (PCR) (NEGATIVE) SARS-CoV-2 (PCR) (NEGATIVE) - Radiology Impressions Radiology Exams & Impressions: Radiology Procedures Category Date Time Status CHEST 1 VIEW (PORTABLE) Stat Exams 07/29/24 00:54 Completed - Other Procedures and Tests Respiratory Therapy 07/29/24 01:06 Respiratory Therapy Assessment DAILY 07/29/24 05:30 Oxygen Nasal Cannula 2 lpm 07/29/24 06:04 Respiratory Therapy Consult ONCE 07/29/24 06:35 Smoking Cessation Education ONCE Assessment/Plan (1) Influenza A Current Visit: Yes Status: Acute Assessment & Plan: - Tamiflu - supportive care - isolation - + lab result in ER Code(s): J10.1 - FLU DUE TO OTH IDENT INFLUENZA VIRUS W OTH RESP MANIFEST (2) COPD (chronic obstructive pulmonary disease) Current Visit: Yes Status: Acute Assessment & Plan: - CBC, CMP reviewd - 2lNC- 94% baseline room air - antibiotics, steroids, duonebs, Advair - OP f/u appointment made with Pulm - CXR: IMPRESSION: 1. Bilateral mainly basal reticulonodular opacity with possible honeycombing suggesting chronic lung changes/interstitial lung disease. please correlate clinically. 2. Bilateral mainly right basal pleural thickening. (3) SAMANTA (acute kidney injury) Current Visit: Yes Status: Acute Assessment & Plan: - Creat 2.58, baseline 0.62 - IVF changed to 50ml/hr d/t CHF hx - CMP reviewed Code(s): N17.9 - ACUTE KIDNEY FAILURE, UNSPECIFIED (4) Hypoxia Current Visit: Yes Status: Acute Assessment & Plan: - 2lNC 94%- Baseline room air - see above plan for copd exacerbation Code(s): R09.02 - HYPOXEMIA (5) Troponin level elevated Current Visit: Yes Status: Acute Assessment & Plan: - denies CP - 2:2 COPD exacerbation - trop x1 elevated- trended down - consider cardiology consult - tele Code(s): R79.89 - OTHER SPECIFIED ABNORMAL FINDINGS OF BLOOD CHEMISTRY (6) CHF (congestive heart failure) Current Visit: Yes Status: Acute Assessment & Plan: - not in acute exacerbation - BNP 2880 - F/u OP with cardiology Code(s): I50.9 - HEART FAILURE, UNSPECIFIED (7) Smoker Current Visit: Yes Status: Chronic Assessment & Plan: - advised cessation - nicotine patch Code(s): F17.200 - NICOTINE DEPENDENCE, UNSPECIFIED, UNCOMPLICATED (8) HTN (hypertension) Current Visit: Yes Status: Chronic Assessment & Plan: - not currently taking any meds - BP stable VTE: Heparin PPI: protonix Next of KIN: Child Ludivina Sanchez- [phone] D/C plan: 1-2 days Code status: Full Code(s): I10 - ESSENTIAL (PRIMARY) HYPERTENSION
[2024-07-29] MEDS ORDERED: Advair Hfa 115/21 Common canister IH SCH (08:30)
[2024-07-29 08:42] LABS: ALBUMIN 3.7 g/dL (3.5-5.0); ANION GAP 14.6 MEQ/L (5-15); BILIRUBIN,TOTAL 0.8 mg/dL (0.2-1.3); Calcium 7.9 mg/dL (8.4-10.2); Creatinine 1 2.21 mg/dL (0.52-1.04); Potassium 3.6 mmol/L (3.5-5.1); Total Protein 7.3 g/dL (6.3-8.2)
[2024-07-29] MEDS: Nicoderm CQ 21 MG TOP SCH (09:37)
[2024-07-29] MEDS: solu-MEDROL 40 MG, Sterile H2O 10 ml 1 ML IV SCH (09:37)
[2024-07-29] MEDS: OSELTAMIVIR PHOSPHATE 30 MG CAP PO SCH (09:37)
[2024-07-29] MEDS: FLUTICASONE-SALMETEROL 250-50 IH SCH (10:09)
[2024-07-29] MEDS: HEPARIN 5000 UNITS/0.5 ML (HIGH RISK MED) SQ SCH (15:12)
[2024-07-29] MEDS: Sodium Chloride 0.9% 1000 ML 1,000 ML IV SCH (21:25)
[2024-07-29] MEDS: ROCEPHIN 1 GM / 100 ML NaCl 1 GM/100 ML IVPB IV SCH (21:26)
[2024-07-30 05:01] LABS: Hematocrit 36.4 % (34.1-44.9); Mean Cell Volume 87.7 fL (79.4-94.8); Mean Corpuscular Hemoglobin 28.9 pg (25.6-32.2); Mean Platelet Volume 10.9 fL (9.4-12.3); Platelet Count 171 x10^3/uL (182-369); Red Blood Count 4.15 x10^6/uL (3.93-5.22); Red Cell Distribution Width 14.6 % (11.7-14.4); White Blood Count 5.3 x10^3/uL (3.98-10.04)
--- NOTE | 2024-07-30 05:23 | PCM.NOTE ---
Date and Time: 07/30/24519 Subjective Assessment: is a 64 year old female with PMHX of COPD, current smoker 1 1/2 ppd, and HTN who presented to ED 07/29/24 with complaints of a two day history of dyspnea, cough, and body aches. Upon arrival to ED patient was hypoxic with spo2 noted at 86% on RAindicating significant respiratory distress. CXR demonstrated bilateral mainly basal reticulonodular opacity with possible honeycombing suggesting chronic lung changes/interstitial lung disease and bilateral - mainly right basal pleural thickening. Lab findings remarkable for hyponatremia and SAMANTA. Influenza A positive. Patient treated with ceftriaxone, azithromycin, solumedrol lasix, and DuoNeb in ED. Admitted with acute respiratory failure secondary to FluA and COPD exacerbation and started on supportive care, including antivirals (Tamiflu), antibiotics (ceftriaxone), IV fluids, and steroids for inflammation. Objective Data Vital Signs: Vital Signs - 24 hr Temp Pulse Resp BP Pulse Ox 07/30/24 04:00 97.8 F 82 20 129/74 94 L 07/29/24 23:43 97.5 F 71 20 114/62 95 07/29/24 20:00 97.9 F 73 18 123/74 94 L 07/29/24 19:06 86 18 94 L 07/29/24 16:00 98.3 F 87 18 115/68 93 L 07/29/24 11:42 97.4 F 78 16 94/57 94 L 07/29/24 08:00 97.4 F 78 18 109/64 95 07/29/24 06:03 73 16 93 L 07/29/24 05:58 97.5 F 81 26 H 115/66 94 L Pain Assessment - Last Documented Pain Intensity 0 Intake and Output: Intake & Output 07/27/24 07/28/24 07/29/24 07/30/24 11:59 11:59 11:59 11:59 Intake Total 360 2845 Balance 360 2845 Weight 54.8 kg Lab Results: Lab Results-Last 24 Hours 07/29/24 07/29/24 07/30/24 Range/Units 08:23 09:21 04:15 WBC 5.3 (3.98-10.04) x10^3/uL RBC 4.15 (3.93-5.22) x10^6/uL Hgb 12.0 (11.2-15.7) g/dL Hct 36.4 (34.1-44.9) % MCV 87.7 (79.4-94.8) fL MCH 28.9 (25.6-32.2) pg MCHC 33.0 (32.2-35.5) g/dL RDW 14.6 H (11.7-14.4) % Plt Count 171 L (182-369) x10^3/uL MPV 10.9 (9.4-12.3) fL Sodium 129 L (135-145) mmol/L Potassium 3.6 (3.5-5.1) mmol/L Chloride 94 L (98-107) mmol/L Carbon Dioxide 24 (22-30) mmol/L Anion Gap 14.6 (5-15) MEQ/L BUN 42 H (7-17) mg/dL Creatinine 2.21 H (0.52-1.04) mg/dL Estimated GFR 24.0 ML/MIN Glucose 155 H (74-106) mg/dL Calcium 7.9 L (8.4-10.2) mg/dL Total Bilirubin 0.80 (0.2-1.3) mg/dL AST 46 H (14-36) U/L ALT 20 (0-35) U/L Alkaline Phosphatase 148 H (38-126) U/L Troponin I 0.014 (0.000-0.033) ng/mL Serum Total Protein 7.3 (6.3-8.2) g/dL Albumin 3.7 (3.5-5.0) g/dL Radiology Exams: Radiology Procedures Category Date Time Status CHEST 1 VIEW (PORTABLE) Stat Exams 07/29/24 00:54 Completed Multi-Disciplinary Progress Notes: Multi-Disciplinary Progress Notes 07/29/24 08:08 Respiratory Note by Katie Newberry Pt in Flu A iso. Will change Advair common canister to Advair 250/50 bid Initialized on 07/29/24 08:08 - END OF NOTE Assessment/Plan (1) Influenza A Current Visit: Yes Status: Acute Assessment & Plan: - Tamiflu - supportive care - isolation - + lab result in ER Code(s): J10.1 - FLU DUE TO OTH IDENT INFLUENZA VIRUS W OTH RESP MANIFEST (2) COPD (chronic obstructive pulmonary disease) Current Visit: Yes Status: Acute Assessment & Plan: - CBC, CMP reviewed - Currently on 1lNC-baseline room air -Supplemental oxygen with goal spo2 > 91% - antibiotics, steroids, duonebs, Advair - CXR Findings suggest chronic lung changes with possible honeycombing (indicative of interstitial lung disease) and pleural thickening, which may be related to her COPD history or pulmonary fibrosis will set up OP with Pulm for further evaluation (3) Acute respiratory failure with hypoxia Current Visit: Yes Status: Acute Assessment & Plan: - Currrently at 1lNC - Baseline room air -continue to wean - see above plan for copd exacerbation Code(s): J96.01 - ACUTE RESPIRATORY FAILURE WITH HYPOXIA (4) SAMANTA (acute kidney injury) Current Visit: Yes Status: Acute Assessment & Plan: - Creat baseline 0.62- creat reviewed at 1.47 < 2.21 -improving - IVF changed to 50ml/hr d/t CHF hx - Monitor renal/lytes -avoid nephrotoxic agents Code(s): N17.9 - ACUTE KIDNEY FAILURE, UNSPECIFIED (5) CHF (congestive heart failure) Current Visit: Yes Status: Acute Assessment & Plan: - not in acute exacerbation - BNP reviewed at 2880 -Most recent echo in 2020 on file - EF at that time was 62% with mild concentric LVh Normal contractility of the left ventricle. Mild aortic and tricuspid regurgitation. Normal right ventricular systolic pressure - F/u OP with cardiology Code(s): I50.9 - HEART FAILURE, UNSPECIFIED (6) Troponin level elevated Current Visit: Yes Status: Acute Assessment & Plan: - denies CP - 2:2 COPD exacerbation - trop x1 elevated- trended down - consider cardiology consult - tele Code(s): R79.89 - OTHER SPECIFIED ABNORMAL FINDINGS OF BLOOD CHEMISTRY (7) HTN (hypertension) Current Visit: Yes Status: Chronic Assessment & Plan: - not currently taking any meds - BP stable Code(s): I10 - ESSENTIAL (PRIMARY) HYPERTENSION (8) Smoker Current Visit: Yes Status: Chronic Assessment & Plan: - advised cessation - nicotine patch VTE: Heparin PPI: protonix Next of KIN: Child Ludivina Sanchez- [phone] D/C plan: 1-2 days Code status: Full Code(s): F17.200 - NICOTINE DEPENDENCE, UNSPECIFIED, UNCOMPLICATED
[2024-07-30 05:54] VITALS: RESP 16
[2024-07-30 07:36] LABS: ALBUMIN 3.5 g/dL (3.5-5.0); ANION GAP 13.8 MEQ/L (5-15); BILIRUBIN,TOTAL 0.4 mg/dL (0.2-1.3); Calcium 8.3 mg/dL (8.4-10.2); Creatinine 1 1.47 mg/dL (0.52-1.04); EST GLOMERULAR FILTRATION RATE 39.1 ML/MIN; Potassium 3.5 mmol/L (3.5-5.1)
[2024-07-30] MEDS: Protonix 20MG Tablet PO SCH (10:42)
[2024-07-30] MEDS: TYLENOL 325 MG PO PRN (10:42)
[2024-07-30 11:31] VITALS: BP 176/83; PULSE 88; TEMP 97.7; O2SAT 95
--- NOTE | 2024-07-30 11:40 | PCM.DS ---
Discharge Summary Date of Admission: 07/29/24 05:26 Date of Discharge: 07/30/24 Admitting Physician: AVTAR CHOUDHURY MD Primary Care Provider: LOUIS MACHUCA Allergies Allergies No Known Drug Allergies Allergy (Verified 07/29/24 00:42) Hospital Summary - Hospital Course Hospital Course: is a 64 year old female with PMHX of COPD, current smoker 1 1/2 ppd, and HTN who presented to ED 07/29/24 with complaints of a two day history of dyspnea, cough, and body aches. Upon arrival to ED patient was hypoxic with spo2 noted at 86% on RAindicating significant respiratory distress. CXR Findings suggest chronic lung changes with possible honeycombing (indicative of interstitial lung disease) and pleural thickening, which may be related to her COPD history or pulmonary fibrosis. Lab findings remarkable for hyponatremia and SAMANTA. Influenza A positive. Patient treated with ceftriaxone, azithromycin, solumedrol lasix, and DuoNeb in ED. Admitted with acute respiratory failure secondary to FluA and COPD exacerbation. Ip treatment with supportive care, including antivirals (Tamiflu), antibiotics (ceftriaxone), IV fluids, and steroids for inflammation. Dyspnea and cough have improved. SAMANTA is resolving. Patient requesting discharge today. She is on RA and does not qualify for home oxygen. Will dismiss on Tamiflu, cefuroxime, and prednisone. Patient advised follow up OP with pulmonology and PCP. She will need CMP on Saturday to recheck kidney function. Patient agreeable to plan and stable for discharge. Advised smoking cessation Discharge Note New Diagnosis: Flu A New Medications: Cefuroxime/prednisone/Tamiflu Follow Up: PCP - Saturday with CMP to recheck kidney function - Will need OP pulmonology for evaluation of COPD vs pulm fibrosis Outpatient testing to order: CMP Saturday to recheck Creat I spent 38 minutes [id number] with the patient on the day of discharge performing discharge exam, discussing hospital stay and discharge instructions with patient and caregivers, preparation of discharge records, prescriptions & referral forms and addressing any questions/concerns the patient had as docume nted above. - Vitals & Intake/Output Vital Signs: Vital Signs Temperature 97.7 F 07/30/24 11:30 Pulse Rate 88 07/30/24 11:30 Respiratory Rate 16 07/30/24 11:30 Blood Pressure 176/83 07/30/24 11:30 O2 Sat by Pulse Oximetry 95 07/30/24 11:30 Intake & Output: Intake & Output 07/27/24 07/28/24 07/29/24 07/30/24 11:59 11:59 11:59 11:59 Intake Total 360 3325 Balance 360 3325 Weight 54.8 kg - Lab Result Diagrams: 07/30/24 04:15 07/30/24 04:15 Lab Results-Last 24 Hrs: Lab Results-Last 24 Hours 07/30/24 07/30/24 Range/Units 04:15 04:15 WBC 5.3 (3.98-10.04) x10^3/uL RBC 4.15 (3.93-5.22) x10^6/uL Hgb 12.0 (11.2-15.7) g/dL Hct 36.4 (34.1-44.9) % MCV 87.7 (79.4-94.8) fL MCH 28.9 (25.6-32.2) pg MCHC 33.0 (32.2-35.5) g/dL RDW 14.6 H (11.7-14.4) % Plt Count 171 L (182-369) x10^3/uL MPV 10.9 (9.4-12.3) fL Sodium 130 L (135-145) mmol/L Potassium 3.5 (3.5-5.1) mmol/L Chloride 96 L (98-107) mmol/L Carbon Dioxide 23 (22-30) mmol/L Anion Gap 13.8 (5-15) MEQ/L BUN 46 H (7-17) mg/dL Creatinine 1.47 H (0.52-1.04) mg/dL Estimated GFR 39.1 ML/MIN Glucose 153 H (74-106) mg/dL Calcium 8.3 L (8.4-10.2) mg/dL Total Bilirubin 0.40 (0.2-1.3) mg/dL AST 34 (14-36) U/L ALT 19 (0-35) U/L Alkaline Phosphatase 143 H (38-126) U/L Serum Total Protein 7.0 (6.3-8.2) g/dL Albumin 3.5 (3.5-5.0) g/dL Micro Results-Entire Visit: Microbiology 07/29/24 01:00 Blood Culture - Preliminary Blood 07/29/24 01:10 Blood Culture - Preliminary Blood - Radiology Exams Ordered Rad Exams-Entire Visit: Radiology Procedures Category Date Time Status CHEST 1 VIEW (PORTABLE) Stat Exams 07/29/24 00:54 Completed - Procedures and Test Procedures and Tests throughout Hospitalization: Therapy Orders & Screens 07/29/24 01:06 Respiratory Therapy Assessment DAILY Comment: 07/29/24 05:30 Oxygen Nasal Cannula 2 lpm Comment: Diagnosis: COPD exacerbation, CHF, hypoxia 07/29/24 06:04 Respiratory Therapy Consult ONCE Comment: Reason For Exam: Diagnosis: COPD exacerbation, CHF, hypoxia 07/29/24 06:35 Smoking Cessation Education ONCE Comment: Diagnosis: COPD exacerbation, CHF, hypoxia Smoking Status: Current every day smoker How long have you smoked: 20 yrs Have you smoked in the past 12 months: Yes Approximately how many cigarettes per day: 1/2PPD Do you dip or chew tobacco: No 07/30/24 00:43 Respiratory MDI BID Comment: Diagnosis: COPD exacerbation, CHF, hypoxia Discharge Exam General Appearance: no apparent distress Neurologic Exam: alert, oriented x 3, cooperative Eye Exam: PERRL Ears, Nose, Throat Exam: normal ENT inspection Neck Exam: normal inspection Respiratory Exam: crackles/rales, wheezing Cardiovascular Exam: regular rate/rhythm, normal heart sounds Gastrointestinal/Abdomen Exam: soft, normal bowel sounds Pelvic Exam: deferred Rectal Exam: deferred Back Exam: normal inspection Extremity Exam: normal inspection Skin Exam: normal color Final Diagnosis/Problem List - Final Discharge Diagnosis/Problem (1) Influenza A Current Visit: Yes Status: Acute Code(s): J10.1 - FLU DUE TO OTH IDENT INFLUENZA VIRUS W OTH RESP MANIFEST (2) COPD (chronic obstructive pulmonary disease) Current Visit: Yes Status: Chronic (3) Acute respiratory failure with hypoxia Current Visit: Yes Status: Resolved Code(s): J96.01 - ACUTE RESPIRATORY FAILURE WITH HYPOXIA (4) SAMANTA (acute kidney injury) Current Visit: Yes Status: Acute Code(s): N17.9 - ACUTE KIDNEY FAILURE, UNSPECIFIED (5) CHF (congestive heart failure) Current Visit: Yes Status: Chronic Code(s): I50.9 - HEART FAILURE, UNSPECIFIED (6) Troponin level elevated Current Visit: Yes Status: Acute Code(s): R79.89 - OTHER SPECIFIED ABNORMAL FINDINGS OF BLOOD CHEMISTRY (7) HTN (hypertension) Current Visit: Yes Status: Chronic Code(s): I10 - ESSENTIAL (PRIMARY) HYPERTENSION (8) Smoker Current Visit: Yes Status: Chronic Code(s): F17.200 - NICOTINE DEPENDENCE, UNSPECIFIED, UNCOMPLICATED - Discharge Discharge Date: 07/30/24 Disposition: Home, Self-Care Condition: Stable Prescriptions: New cefuroxime axetiL [Cefuroxime] 500 mg PO BID 5 Days #10 tablet Prednisone 20 mg [Deltasone 20 mg] 20 mg PO BID 5 Days #10 tablet Oseltamivir Phosphate [Oseltamivir Phosphate 30 mg Cap] 30 mg PO DAILY 3 Days #3 cap Pantoprazole 20 mg [Protonix 20MG Tablet] 20 mg PO DAILY 14 Days #14 tablet Additional Instructions: -Call Dr. Machuca Saturday for labs - you will need a CMP to recheck your kidney function Follow up with: JODIE BENITEZ [CONSULTING PHYSICIAN] - 09/03/24 2:00 pm LOUIS MACHUCA MD [Primary Care Provider] - 08/05/24 11:00 am
== END 2024-07-30 13:57 | disposition home or self-care (01) ==
LOC: ED 00:21 → MED SURG 05:26
PROVIDERS: ADMIT Internal Medicine; ATTEND Internal Medicine
DX: J10.1 Influenza due to other identified influenza virus with other respiratory manifestations (principal); J44.9 Chronic obstructive pulmonary disease, unspecified; J96.01 Acute respiratory failure with hypoxia; N17.9 Acute kidney failure, unspecified; I11.0 Hypertensive heart disease with heart failure; I50.9 Heart failure, unspecified; R79.89 Other specified abnormal findings of blood chemistry; F17.200 Nicotine dependence, unspecified, uncomplicated
CPT/HCPCS: 0241U; 36415; 71045; 80053; 83880; 84484; 85025; 85027; 87040; 93005; 93041; 94640; 94760; 94762; 96365; 96374; 96375; 99285; Q3014; 93268; J0456; J0696; J1644; J1940; J2919; A9270-GY; G0378